=== PATIENT | male | born 1975 | race American Indian/Alaskan Native ===

== ENCOUNTER 2017-09-22 06:56 | Observation (INO) | payer SELFPAY ==
[2017-09-22 07:00] VITALS: BMI 38.4
--- NOTE | 2017-09-22 07:55 | ED PDOC ---
Arrival/HPI - General Historian: Patient - History of Present Illness Time/Duration: Prior to Arrival, 1-3 hours Symptom Onset: Sudden Symptom Course: Unchanged Severity Level: 7 Activities at Onset: Rest Context: Sitting - General Chief Complaint: Chest Pain Time Seen by Provider: 09/22/17 07:28 - History of Present Illness Narrative History of Present Illness (Text): 09/22/17 07:46 42M no significant PMHx, takes no medication [place] [facility] w/ squeezing right sided chest pain that started two hours prior to arrival. Pain is more tolerable when right arm is extended overhead. Describes pain as the same when it first started. No previous episodes like this before. Admits eating chicken wings the night before. No recent sick contacts, or eating anything out of the ordinary. Some associated diaphoresis. Denies headaches, shortness of breath, nausea, vomiting, sudden changes in vision, loss of consciousness. PMD: Dr. Eugene PMH: no current issues. Does not take any meds at home. 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 SocialHx: 1-2 Cigars 1x/week. Denies ETOH, recreational drug use (Krzysztof Jones ) Past Medical History - Provider Review Nursing Documentation Reviewed: Yes - Travel History Have you recently traveled outside [place] w/in the past 3 mons?: No - Past History Past History: Non-Contributing - Infectious Disease Hx of Infectious Diseases: None - Tetanus Immunization Tetanus Immunization: Unknown - Past Medical History Past Medical History: No Previous - Cardiac Other/Comment: Hole in the heart, hernia when he was born, hole in heart closed on it's own. - Pulmonary Hx Respiratory Disorders: No - Neurological Hx Neurological Disorder: No - HEENT Hx HEENT Disorder: No - Renal Hx Renal Disorder: No - Endocrine/Metabolic Hx Endocrine Disorders: No - Hematological/Oncological Hx Blood Disorders: No - Integumentary Hx Dermatological Disorder: No - Musculoskeletal/Rheumatological Hx Falls: No - Gastrointestinal Hx Gastrointestinal Disorders: Yes (twisted intestine as a youth) - Genitourinary/Gynecological Hx Genitourinary Disorders: No - Psychiatric Hx Psychophysiologic Disorder: No Hx Anxiety: No Hx Bipolar Disorder: No Hx Depression: No Hx Emotional Abuse: No Hx Hallucinations: No Hx Panic Disorder: No Hx Post Traumatic Stress Disorder: No Hx Psychosis: No Hx Physical Abuse: No Hx Schizophrenia: No Hx Sexual Abuse: No Hx Substance Use: No - Surgical History Other/Comment: twisted intestine in youth - Anesthesia Hx Anesthesia: Yes Hx Anesthesia Reactions: No Hx Malignant Hyperthermia: No Family/Social History - Physician Review Nursing Documentation Reviewed: Yes Family/Social History: Unknown Family HX (pt was adopted) Smoking Status: Never Smoked Hx Alcohol Use: Yes (social) Hx Substance Use: No Hx Substance Use Treatment: Yes Allergies/Home Meds Allergies/Adverse Reactions: Allergies shellfish derived Allergy (Verified 08/24/15 20:31) SHORTNESS OF BREATH Home Medications: Home Meds Medication Instructions Recorded Confirmed No Known Home Med 08/21/15 09/22/17 Review of Systems - Review of Systems Constitutional: Night Sweats. absent: Fatigue, Weight Change, Fevers Eyes: absent: Vision Changes, Photophobia ENT: absent: Hearing Changes, Tinnitus Respiratory: absent: SOB, Cough, Sputum, Wheezing Cardiovascular: Chest Pain. absent: Palpitations, Edema, Calf Pain Gastrointestinal: absent: Abdominal Pain, Stool Changes, Constipation, Diarrhea , Nausea, Vomiting, Appetite Changes Genitourinary Male: absent: Dysuria, Urinary Output Changes Musculoskeletal: absent: Arthralgias, Back Pain Skin: absent: Rash, Pruritis, Skin Lesions, Laceration Neurological: absent: Headache, Dizziness, Focal Weakness Endocrine: Diaphoresis Physical Exam Vital Signs Reviewed: Yes Temperature: Afebrile Blood Pressure: Hypertensive (BP was rechecked 155/78) Pulse: Regular Respiratory Rate: Normal Appearance: Positive for: Well-Appearing, Non-Toxic, Uncomfortable Pain Distress: None Mental Status: Positive for: Alert and Oriented X 3 - Systems Exam Head: Present: Atraumatic, Normocephalic Pupils: Present: PERRL Extroacular Muscles: Present: EOMI Conjunctiva: Present: Normal Mouth: Present: Moist Mucous Membranes Nose (External): Present: Atraumatic Neck: Present: Normal Range of Motion Respiratory/Chest: Present: Clear to Auscultation, Good Air Exchange. No: Respiratory Distress, Accessory Muscle Use Cardiovascular: Present: Regular Rate and Rhythm, Normal S1, S2 Abdomen: Present: Distention (states abd is normal size). No: Tenderness, Peritoneal Signs, Rebound, Guarding Upper Extremity: Present: Normal Inspection, Normal ROM. No: Edema Lower Extremity: No: Edema, CALF TENDERNESS Neurological: Present: GCS=15, Speech Normal Skin: Present: Warm. No: Rashes Psychiatric: Present: Alert, Oriented x 3 Vital Signs Temp Pulse Resp BP Pulse Ox 09/22/17 09:25 61 18 159/97 H 99 09/22/17 08:10 62 18 131/60 98 09/22/17 07:08 98.2 F 61 18 153/111 H 97 Medical Decision Making - Lab Interpretations Interpretation: All labs normal - EKG Interpretation Interpreted by ED Physician: Yes Type: 12 lead EKG Comparison: No previous EKG avail. ED Course and Treatment: 09/22/17 08:00 Chest pain R/O ACS CBC/CMP/Trops/Lipase CXR/EKG Pepcid/Toradol EKG shows sinus bradycardia. No abnormalities in NH interval or QT/QTc. No signs of acute TN or heart blocks 09/22/17 08:39 No abnormalities on labs. CBC- WNL. TroponinI is negative. Lipase WNL CXR- no signs of acute changes or abnormalities. Discussed case in detail with Dr. Eugene. Will admit for obs to r/o ACS and further work-up for chest pain. (Krzysztof Jones) Patient Seen With Resident: In agreement with resident note which contains more details about the patient. Patient was seen and evaluated with resident. Came up with plan and treatment together. 09/22/17 08:48 Dr. [facility], agrees with admission to observation, with [employer] Dr. Barrios, on consult. 09/22/17 09:55 Ultrasound Abdomen Creator : Kvng Montanez MD FINDINGS: LIVER: Measures 17.0 cm. Hepatopedal blood flow. Fatty infiltration manifest ultrasonographically as increased echogenicity of the liver parenchyma. No mass. No intrahepatic bile duct dilatation. GALLBLADDER: Cholelithiasis without CT evidence of acute cholecystitis. COMMON BILE DUCT: Measures 5.3 mm. No stones. No dilatation. PANCREAS: Unremarkable as visualized. No mass. No ductal dilatation. RIGHT KIDNEY: Measures 5.6 x 12.0cm. Normal echogenicity. No calculus, mass, or hydronephrosis. LEFT KIDNEY: Measures 5.5 x 12.2cm. Normal echogenicity. No calculus, mass, or hydronephrosis. SPLEEN: Normal in size and contour. No mass. AORTA: No aneurysmal dilatation. IVC: Unremarkable. IMPRESSION: Cholelithiasis. No sonographic evidence of acute cholecystitis. ( Akil Jackson) - Lab Interpretations Narrative Lab Interpretation (Text): 09/22/17 08:37 WBC- WNL: no signs of active infection Trop-I < 0.01 (clinically negative) Lipase- 82 (WNL) (Krzysztof Jones) Lab Results: 09/22/17 08:00 09/22/17 08:00 Lab Results 09/22/17 08:00: Sodium 143, Potassium 3.6, Chloride 106, Carbon Dioxide 27, Anion Gap 13, BUN 16, Creatinine 0.8, Est GFR ( Amer) > 60, Est GFR (Non- Af Amer) > 60, Random Glucose 109, Calcium 10.2, Total Bilirubin 0.3, AST 24, ALT 22, Alkaline Phosphatase 37 L, Troponin I < 0.01, Total Protein 7.7, Albumin 4.2, Globulin 3.5, Albumin/Globulin Ratio 1.2, Lipase 82 09/22/17 08:00: WBC 10.3 D, RBC 4.47, Hgb 13.2 L, Hct 40.5 L, MCV 90.6, MCH 29.5, MCHC 32.6, RDW 12.3, Plt Count 308, MPV 10.0, Gran % 77.4 H, Lymph % (Auto ) 16.4 L, Bonner % (Auto) 4.9, Eos % (Auto) 0.9 L, Baso % (Auto) 0.4, Gran # 8.00 H, Lymph # (Auto) 1.7, Bonner # (Auto) 0.5, Eos # (Auto) 0.1, Baso # (Auto) 0.04 - RAD Interpretation Radiology Orders: 09/22/17 07:44 CHEST TWO VIEWS (PA/LAT) [RAD] Stat - EKG Interpretation EKG Interpretation (Text): 09/22/17 08:01 EKG shows sinus bradycardia. No abnormalities in NH interval or QT/QTc. No signs of acute TN or heart blocks (Krzysztof Jones) - Medication Orders Current Medication Orders: Famotidine (Pepcid 20mg/50ml Premix) 20 mg in 50 mls @ 100 mls/hr IVPB Q12 LLOYD Ketorolac Tromethamine (Toradol) 30 mg IVP Q8H PRN PRN Reason: Pain, moderate (4-7) Discontinued Medications Amlodipine Besylate (Norvasc) 5 mg PO STAT STA Stop: 09/22/17 09:00 Last Admin: 09/22/17 09:27 Dose: 5 mg Aspirin (Aspirin Chewable) 324 mg PO STAT STA Stop: 09/22/17 09:01 Last Admin: 09/22/17 09:26 Dose: 324 mg Famotidine (Pepcid) 20 mg IVP STAT STA Stop: 09/22/17 07:45 Last Admin: 09/22/17 07:50 Dose: 20 mg IVP Administration Document 09/22/17 07:50 PARUL (Rec: 09/22/17 07:50 PARUL CORONEL-PC) Charges for Administration # of IVP Administrations 1 Ketorolac Tromethamine (Toradol) 30 mg IVP STAT STA Stop: 09/22/17 07:45 Last Admin: 09/22/17 07:50 Dose: 30 mg MAR Pain Assessment Document 09/22/17 07:50 PARUL (Rec: 09/22/17 07:51 PARUL CORONEL-PC) Pain Reassessment Is this a pain reassessment? No Sleep Is patient sleeping during reassessment? No Presence of Pain Presence of Pain Yes IVP Administration Document 09/22/17 07:50 PARUL (Rec: 09/22/17 07:51 PARUL CORONEL-PC) Charges for Administration # of IVP Administrations 1 - PA / AQUATICS MANAGER / Resident Statement / has reviewed & agrees with the documentation as recorded. / has examined the patient and agrees with the treatment plan. Disposition/Present on Arrival - Present on Arrival Any Indicators Present on Arrival: No History of DVT/PE: No History of Uncontrolled Diabetes: No Urinary Catheter: No History of Decub. Ulcer: No History Surgical Site Infection Following: None - Disposition Have Diagnosis and Disposition been Completed?: Yes Disposition Time: 09:00 Patient Plan: Admission - Disposition Diagnosis: Chest pain, rule out acute myocardial infarction Disposition: HOSPITALIZED Patient Problems: Current Active Problems Problem Status Onset Chest pain, rule out acute myocardial infarction Acute Condition: STABLE
[2017-09-22 08:09] LABS: BASO # 0.04 K/mm3 (0.0-2.0); BASO % 0.4 % (0.0-3.0); EOS # 0.1 (0.0-0.7); EOS % 0.9 % (1.5-5.0); GRAN % 77.4 % (50.0-68.0); HEMOGLOBIN 13.2 g/dL (14.0-18.0); LYMPH # 1.7 (1.2-3.4); LYMPH % 16.4 % (22.0-35.0); MEAN CELL VOLUME 90.6 fl (80.0-105.0); MEAN CORPUSCULAR HEMOGLOBIN 29.5 pg (25.0-35.0); MEAN CORPUSCULAR HGB CONC 32.6 g/dl (31.0-37.0); MONO # 0.5 (0.1-0.6); MONO % 4.9 % (1.0-6.0); RBC 4.47 10^6/uL (3.5-6.1); RED CELL DISTRIBUTION WIDTH 12.3 % (11.5-14.5); WHITE BLOOD COUNT 10.3 10^3/ul (4.5-11.0)
[2017-09-22 08:20] LABS: ALB/GLOB RATIO 1.2 (1.1-1.8); ALBUMIN 4.2 g/dL (3.0-4.8); ALT/SGPT 22 U/L (7-56); AST/SGOT 24 U/L (17-59); BLOOD UREA NITROGEN 16 mg/dL (7-21); CALCIUM 10.2 mg/dL (8.4-10.5); GFR AFRICAN-AMERICAN > 60; GFR NON-AFRICAN AMERICAN > 60; LIPASE 82 U/L (23-300)
[2017-09-22 08:31] LABS: TROPONIN I < 0.01 ng/mL
--- NOTE | 2017-09-22 09:54 | US ---
HISTORY: Mid abdominal pain, right chest pain COMPARISON: 06/09/2016 CT abdomen and pelvis. 12/16/2012 abdominal ultrasound. TECHNIQUE: Sonographic evaluation of the abdomen. FINDINGS: LIVER: Measures 17.0 cm. Hepatopedal blood flow. Fatty infiltration manifest ultrasonographically as increased echogenicity of the liver parenchyma. No mass. No intrahepatic bile duct dilatation. GALLBLADDER: Cholelithiasis without CT evidence of acute cholecystitis. COMMON BILE DUCT: Measures 5.3 mm. No stones. No dilatation. PANCREAS: Unremarkable as visualized. No mass. No ductal dilatation. RIGHT KIDNEY: Measures 5.6 x 12.0cm. Normal echogenicity. No calculus, mass, or hydronephrosis. LEFT KIDNEY: Measures 5.5 x 12.2cm. Normal echogenicity. No calculus, mass, or hydronephrosis. SPLEEN: Normal in size and contour. No mass. AORTA: No aneurysmal dilatation. IVC: Unremarkable. OTHER FINDINGS: None. IMPRESSION: Cholelithiasis. No sonographic evidence of acute cholecystitis.
[2017-09-22] MEDS: Famotidine 20mg/50ml 20 MG/50 ML BAG IVPB SCH ×2 (10:00→21:39)
--- NOTE | 2017-09-22 10:32 | RAD ---
HISTORY: Chest pain. COMPARISON: 08/21/2015 TECHNIQUE: Chest PA and lateral FINDINGS: LUNGS: No active pulmonary disease. PLEURA: No significant pleural effusion identified. No pneumothorax apparent. CARDIOVASCULAR: No radiographic findings to suggest acute or significant cardiovascular disease. OSSEOUS STRUCTURES: No significant abnormalities. VISUALIZED UPPER ABDOMEN: Normal. OTHER FINDINGS: None. IMPRESSION: No active disease.
[2017-09-22 10:41] VITALS: O2SAT 98
--- NOTE | 2017-09-22 12:41 | RAD ---
PROCEDURE: Radiographs of the Right Shoulder HISTORY: rt shoulder pain COMPARISON: No prior. FINDINGS: BONES: Normal. No fracture. JOINTS: Normal. Glenohumeral and acromioclavicular joints preserved. No osteoarthritis. SOFT TISSUES: Normal. OTHER FINDINGS: None. IMPRESSION: Normal radiographs of the right shoulder.
[2017-09-22] MEDS ORDERED: Influenza Vaccine 60 mcg/0.5 mL SYR (4YR UP) IM ONE (13:37)
--- NOTE | 2017-09-22 14:00 | CARD ---
APPROVED REPORT EKG Measurement Heart [id number] CO [id number] <Conclusion> Sinus bradycardia Otherwise normal ECG
--- NOTE | 2017-09-22 19:44 | HP ---
HISTORY OF PRESENT ILLNESS: I know Casper from the office. He came to the emergency room with a sudden onset of chest pain. I was called down to the ER to put him in observation by the emergency room doctor. He is a 42-year-old man, who presents with squeezing right-sided chest pain 2 hours prior to arrival, went to the right arm. This is the first time it has ever happened to him. He was eating chicken wings the night before. No recent sick contacts . No nausea or vomiting, but it is the first time he is having chest pain. PAST MEDICAL HISTORY: Premature , inguinal hernia, twisting of intestines, a hole in the heart at . PAST SURGICAL HISTORY: Subtotal colectomy, inguinal hernia repair at an infant. 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 It healed up on its own. No surgery for that. He had twisted intestine as a youth. SOCIAL HISTORY: He smokes 1-2 cigars per week. No recreational drug use. Never smoked except for cigars. Social alcohol. FAMILY HISTORY: Unknown family history. He was adopted. ALLERGIES: SHELLFISH, HE GETS SHORT OF BREATH. MEDICATIONS: He has no known medications at home. REVIEW OF SYSTEMS: He had sweats, he had right-sided chest pain. No acute vision or hearing changes. No sore throat or cough. No palpitations or edema. There is some abdominal discomfort with some nauseousness and maybe some reflux. No problems urinating. No back pain or arthralgias. No rashes or ulcers or lesions. No headache or dizziness. He was sweating with right-sided chest tightness like a squeezing. His blood pressure is very high here. He is well appearing, nontoxic at this time after medication. PHYSICAL EXAMINATION: GENERAL: He is alert and oriented x3. HEENT: Head is atraumatic, normocephalic. Extraocular muscles are intact. Pupils are equal and reactive to light. Throat is moist. NECK: Supple. HEART: Regular rate. Normal S1, S2. LUNGS: Decreased breath sounds bilaterally, but clear to auscultation. ABDOMEN: Obese and mildly distended. No guarding. No rebound. EXTREMITIES: No edema. NEUROLOGIC: GCS is 15. Cranial nerves II through XII grossly intact. SKIN: Warm and dry. No rashes. VITAL SIGNS: He has a 98.2 temperature, 61 pulse, 18 respiratory rate, 153/111 blood pressure, 97% O2 sat on room air. I am going to put him on blood pressure pills and Cardiology consult and oxygen. LABORATORY DATA: On lab test, his EKG showed sinus bradycardia, no abnormalities. He had a blood test. He has a 143 sodium, potassium 3.6, BUN 16, creatinine 0.8. GFR is greater than 60. Sugar is 109. Calcium is 10.2. Total bili is 0.3, AST is 24, ALT is 32, alkaline phosphatase 37. Troponin I is less than 0.01. Total protein 7.2. Albumin is 4.2. Lipase is 82. White count is 10.3, hemoglobin 13.2, hematocrit 40.5, and platelets of 308. Chest x-ray is pending. He will be in the hospital for observation. Cardiology Consult. Pepcid IV q. 12. He will get some Toradol p.r.n. for pain. I will put him on some Norvasc for blood pressure pills and on oxygen, also if he does well overnight with the troponins. We will check an ultrasound of the abdomen and will see how he does. Casper Farias is in observation for chest pain. Kvng Eugene DO MTDD
--- NOTE | 2017-09-22 22:54 | CON ---
DATE: 09/22/2017 HISTORY OF PRESENT ILLNESS: The patient is a 42-year-old male who presents with right shoulder and right chest pain. His symptoms are associated with movement of his right arm. The patient is free of cardiac history. As a child, he had a "hole in the heart," which closed spontaneously. No hypertension, no diabetes mellitus. No previous cardiac history in the past. The patient had recent admissions for abdominal symptoms. He denies hypertension, denies diabetes mellitus. SOCIAL HISTORY: The patient does not smoke. He does smoke occasional cigars. REVIEW OF SYSTEMS: A 14-point review of systems was reviewed in detail. No cardiac symptomatology is noted. PHYSICAL EXAMINATION: VITAL SIGNS: Blood pressure is 141/79, heart rates in the 50s, normal sinus rhythm. NECK: Negative JVD. LUNGS: Without rales. HEART: With S1, S2. EXTREMITIES: Without edema. LABORATORY DATA: Includes an EKG which is unremarkable. Hemoglobin is 13.2. Troponin is negative x1. IMPRESSION: 1. Right-sided chest pain. 2. No evidence for acute coronary syndrome. 3. History of abdominal symptoms. 4. Right shoulder pain. PLAN: Given these findings, we will obtain an x-ray of his right shoulder. There is no evidence for acute coronary syndrome. Choco Barrios MD
[2017-09-23 07:16] LABS: HEMOGLOBIN 13.1 g/dL (14.0-18.0); MEAN CELL VOLUME 89.9 fl (80.0-105.0); MEAN CORPUSCULAR HGB CONC 33.4 g/dl (31.0-37.0); MEAN PLATELET VOLUME 10.4 fl (7.0-11.0); RBC 4.36 10^6/uL (3.5-6.1); RED CELL DISTRIBUTION WIDTH 12.2 % (11.5-14.5); WHITE BLOOD COUNT 7.6 10^3/ul (4.5-11.0)
[2017-09-23 07:45] LABS: ALB/GLOB RATIO 1.1 (1.1-1.8); ALBUMIN 3.7 g/dL (3.0-4.8); ALT/SGPT 31 U/L (7-56); AST/SGOT 25 U/L (17-59); BLOOD UREA NITROGEN 8 mg/dL (7-21); CALCIUM 9.5 mg/dL (8.4-10.5); GFR AFRICAN-AMERICAN > 60; GFR NON-AFRICAN AMERICAN > 60
[2017-09-23] MEDS ORDERED: Potassium Chloride 20 mEq ER Tab PO ONE (08:29)
[2017-09-23] MEDS: Famotidine 20mg/50ml 20 MG/50 ML BAG IVPB SCH (09:12)
[2017-09-23 09:13] VITALS: BP 125/69
--- NOTE | 2017-09-23 09:58 | PN ---
DATE: CARDIOLOGY FOLLOWUP SUBJECTIVE: The patient is chest pain free. PHYSICAL EXAMINATION VITAL SIGNS: Blood pressure is 125/69, heart rate is in the 60s. NECK: Negative JVD. LUNGS: Without rales. HEART: S1, S2. EXTREMITIES: Without edema. LABORATORY DATA: Troponins are negative x2. Hemoglobin is 13.1. X-ray of the right shoulder is negative. IMPRESSION 1. No evidence for acute coronary syndrome. 2. No evidence for angina. Given the patient's risk factors, we will arrange for an outpatient stress test. No further cardiac workup is necessary at this time. Choco Barrios MD
[2017-09-23 10:12] VITALS: PULSE 58; RESP 18; TEMP 98.7
--- NOTE | 2017-09-23 10:21 | DS ---
HISTORY OF PRESENT ILLNESS: I saw Mr. Fraias resting comfortably in bed. He slept well. He wants to go home. His right-sided abdominal pain and chest pain are now dissipated. He was getting aspirin, Norvasc, Pepcid, famotidine, pseudoephedrine and Toradol. PHYSICAL EXAMINATION: VITAL SIGNS: His vital signs today are 98.2 temp, 55 pulse, 141/79 blood pressure, 17 respiratory rate, 98% O2 sat on room air. HEENT: His head is atraumatic, normocephalic. Throat is moist. NECK: Supple. HEART: Regular rate. LUNGS: Clear to auscultation with decreased breath sounds. ABDOMEN: Soft, obese, nontender. No guarding, no rebound, no CVA tenderness. No more chest pain, abdominal pain. EXTREMITIES: Have no edema. LABORATORY DATA: He has a 142 sodium; potassium of 3.4, I am going to give him a potassium pill today; BUN 8; creatinine 0.8; GFR is greater than 60; sugar is 87; calcium is 9.5; total bili is 0.5; AST is 25; ALT is 31; alk phos is 28. All the troponins were less than 0.01 and albumin is 7. White count is 7.6, hemoglobin 13.1, hematocrit 39.2, platelets of 287. ASSESSMENT AND PLAN: He is going to need to be on Norvasc 5 mg, Pepcid [id number] and a low-fat diet. I am going to recheck him in a weak and hopefully he will do very well. Kvng Eugene DO
== END 2017-09-23 13:18 | disposition home or self-care (01) ==
LOC: ED 06:56 → ERH 08:50 → 3RSO 11:15
PROVIDERS: ADMIT Family Medicine; ATTEND Family Medicine
DX: R07.89 Other chest pain (principal); M25.511 Pain in right shoulder
CPT/HCPCS: 36415; 71046; 73030; 76700; 80053; 83690; 84484; 85025; 85027; 93005; 96374; 99285; G0378; J1885

== ENCOUNTER 2018-07-06 22:23 | Inpatient (IN) | payer OTHER ==
[2018-07-06] MEDS ORDERED: Atrop/Hyosc/Scopal/PB Elixir (120 ml) PO STA (23:24)
[2018-07-06] MEDS ORDERED: Alum-Mag Hydrox-Simethicone Susp (30 mL) PO STA (23:24)
[2018-07-06] MEDS ORDERED: Famotidine 20mg/50ml 20 MG/50 ML BAG IVPB STA (23:24)
--- NOTE | 2018-07-07 02:57 | ED PDOC ---
Arrival/HPI - General Chief Complaint: Chest Pain Time Seen by Provider: 07/06/18 22:42 Historian: Patient - History of Present Illness Narrative History of Present Illness (Text): 07/07/18 02:59 43 year old male, with history of small bowel obstruction, presents to the emergency department complaining of abdominal pain and vomiting since 18:00 yesterday. Patient complains of associated nausea. Patient states he has these issues intermittently, and is in need of recurrent bowel surgeries. Patient states he did not take any pain medication because he could not stomach anything. Patient denies any fever, chills, headache, dizziness, chest pain, shortness of breath, or any other complaints at this time. Time/Duration: 4-6 hours Symptom Onset: Gradual Symptom Course: Unchanged Context: Home Past Medical History - Provider Review Nursing Documentation Reviewed: Yes - Past History Past History: Non-Contributing - Infectious Disease Hx of Infectious Diseases: None - Tetanus Immunization Tetanus Immunization: Unknown - Past Medical History Past Medical History: No Previous - Cardiac Other/Comment: Hole in the heart, hernia when he was born, hole in heart closed on it's own. - Pulmonary Hx Respiratory Disorders: No - Neurological Hx Neurological Disorder: No - HEENT Hx HEENT Disorder: No - Renal Hx Renal Disorder: No - Endocrine/Metabolic Hx Endocrine Disorders: No - Hematological/Oncological Hx Blood Disorders: No - Integumentary Hx Dermatological Disorder: No - Musculoskeletal/Rheumatological Hx Falls: No - Gastrointestinal Hx Gastrointestinal Disorders: Yes (twisted intestine as a youth) - Genitourinary/Gynecological Hx Genitourinary Disorders: No - Psychiatric Hx Psychophysiologic Disorder: No Hx Anxiety: No Hx Bipolar Disorder: No Hx Depression: No Hx Emotional Abuse: No Hx Hallucinations: No Hx Panic Disorder: No Hx Post Traumatic Stress Disorder: No Hx Psychosis: No Hx Physical Abuse: No Hx Schizophrenia: No Hx Sexual Abuse: No Hx Substance Use: No - Surgical History Other/Comment: twisted intestine in youth - Anesthesia Hx Anesthesia: Yes Hx Anesthesia Reactions: No Hx Malignant Hyperthermia: No Family/Social History - Physician Review Nursing Documentation Reviewed: Yes Family/Social History: No Known Family HX Smoking Status: Cigars Hx Alcohol Use: Yes (social) Hx Substance Use: No Hx Substance Use Treatment: Yes Allergies/Home Meds Allergies/Adverse Reactions: Allergies shellfish derived Allergy (Verified 08/24/15 20:31) SHORTNESS OF BREATH Home Medications: Home Meds Medication Instructions Recorded Confirmed No Known Home Med 08/21/15 09/22/17 Review of Systems - Physician Review All systems were reviewed & negative as marked: Yes - Review of Systems Constitutional: absent: Fevers, Night Sweats Respiratory: absent: SOB Cardiovascular: absent: Chest Pain Gastrointestinal: Abdominal Pain, Vomiting Musculoskeletal: absent: Back Pain Neurological: absent: Headache, Dizziness Physical Exam Vital Signs Reviewed: Yes Vital Signs Temp Pulse Resp BP Pulse Ox 07/06/18 22:24 98.4 F 60 18 163/96 H 96 Temperature: Afebrile Blood Pressure: Hypertensive Pulse: Regular Respiratory Rate: Normal Appearance: Positive for: Well-Appearing, Non-Toxic, Comfortable Pain Distress: None Mental Status: Positive for: Alert and Oriented X 3 - Systems Exam Head: Present: Atraumatic, Normocephalic Pupils: Present: PERRL Extroacular Muscles: Present: EOMI Conjunctiva: Present: Normal Mouth: Present: Moist Mucous Membranes Neck: Present: Normal Range of Motion Respiratory/Chest: Present: Clear to Auscultation, Good Air Exchange. No: Respiratory Distress, Accessory Muscle Use Cardiovascular: Present: Regular Rate and Rhythm, Normal S1, S2. No: Murmurs Abdomen: Present: Tenderness (Diffusely tender). No: Distention, Peritoneal Signs Back: Present: Normal Inspection Upper Extremity: Present: Normal Inspection. No: Cyanosis, Edema Lower Extremity: Present: Normal Inspection. No: Edema Neurological: Present: GCS=15, CN II-XII Intact, Speech Normal Skin: Present: Warm, Dry, Normal Color. No: Rashes Psychiatric: Present: Alert, Oriented x 3, Normal Insight, Normal Concentration Medical Decision Making ED Course and Treatment: Impression 43M w/ h/o SBO presenting with abdominal pain Differential Diagnoses Includes But Is Not Limited To: --SBO --Pancreatitis --Colitis Plan --Labs --Zosyn --CT a/p --Toradol --NSS --Surgery Consult --Reassess & disposition Progress Notes 07/07/18 02:57 Leukocytosis of 13 noted with shift. Pending CT a/p 07/07/18 03:25 CT imaging reveals SBO with transition point. Spoke to Surgery resident who will come down and see patient. Discussed patient results and CT imaging with Dr. Eugene(PCP) who requests Dr. Issa(general surgery) & Dr. Robertson(infectious disease) for consult. - Lab Interpretations Lab Results: 07/06/18 23:40 Lab Results 07/06/18 23:40: Sodium 139, Potassium 4.2, Chloride 98, Carbon Dioxide 32, Anion Gap 13, BUN 11, Creatinine 0.9, Est GFR ( Amer) > 60, Est GFR (Non-Af Amer) > 60, Random Glucose 104, Calcium 10.1, Magnesium 1.9, Total Bilirubin 0.6, AST 41, ALT 29, Alkaline Phosphatase 51, Troponin I < 0.01, NT-Pro-B Natriuret Pep 13.2, Total Protein 8.9 H, Albumin 4.9 H, Globulin 4.0, Albumin/Globulin Ratio 1.2, Lipase 39 I have reviewed the lab results: Yes - RAD Interpretation Radiology Orders: 07/06/18 23:36 ABD & PELVIS W/O PO OR IV CONT [CT] Stat CT Abdomen and Pelvis Without IV contrast IMPRESSION: 1. Dilated loops of mid abdominal small bowel with transition point distally compatible with small bowel obstruction. This can be confirmed with CT performed with oral/IV contrast. 2. 4 cm left renal cyst is seen. - Medication Orders Current Medication Orders: Discontinued Medications Al Hydrox/Mg Hydrox/Simethicone (Maalox Plus 30 Ml) 30 ml PO STAT STA Stop: 07/06/18 23:25 Belladonna/Phenobarbital ( Elixir) 5 ml PO STAT STA Stop: 07/06/18 23:25 Famotidine (Pepcid 20mg/50ml Premix) 20 mg in 50 mls @ 100 mls/hr IVPB STAT STA Stop: 07/06/18 23:53 Ondansetron HCl (Zofran Inj) 4 mg IVP STAT STA Stop: 07/06/18 23:25 - Scribe Statement The provider has reviewed the documentation as recorded by the Scribe Choco Viveros Provider Scribe Attestation: All medical record entries made by the Scribe were at my direction and personally dictated by me. I have reviewed the chart and agree that the record accurately reflects my personal performance of the history, physical exam, medical decision making, and the department course for this patient. I have also personally directed, reviewed, and agree with the discharge instructions and disposition. a Disposition/Present on Arrival - Present on Arrival Any Indicators Present on Arrival: No History of DVT/PE: No History of Uncontrolled Diabetes: No Urinary Catheter: No History of Decub. Ulcer: No History Surgical Site Infection Following: None - Disposition Have Diagnosis and Disposition been Completed?: Yes Diagnosis: SBO (small bowel obstruction) Disposition: HOME/ ROUTINE Disposition Time: 03:31 Patient Plan: Admission Condition: GUARDED Forms: [employer] (Guatemalan)
[2018-07-07 03:04] LABS: BLOOD UREA NITROGEN 11 mg/dL (7-21); CALCIUM 10.1 mg/dL (8.4-10.5); GFR NON-AFRICAN AMERICAN > 60
[2018-07-07 03:07] LABS: ALB/GLOB RATIO 1.2 (1.1-1.8); ALBUMIN 4.9 g/dL (3.0-4.8); ALT/SGPT 29 U/L (7-56); AST/SGOT 41 U/L (17-59); B-TYPE NATRIURETIC PEPTIDE 13.2 pg/mL (0-450); LIPASE 39 U/L (23-300)
[2018-07-07 03:08] LABS: TROPONIN I < 0.01 ng/mL
[2018-07-07] MEDS ORDERED: Piperacill/Tazo 4.5gm in NS 4.5 GM/100 ML BAG IVPB STA (03:23)
--- NOTE | 2018-07-07 03:56 | CP.PCM.CON ---
History of Present Illness - History of Present Illness History of Present Illness: Surgery: Dr. Issa CC: Abd pain HPI: 43M w. 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 The pain is diffuse, constant, and described as sharp. The pain is similar to the pain he has had in the past with his SBOs. Pain was accompanied by 1 episode of nausea and vomiting. Pt states that he has not passed flatus or had BM since last night. CT done in ED was consistent w. SBO. Pt's SBOs in the past resolved w. conservative management, NPO/NGT. Pt is currently refusing NGT and states that he would like to hold off unless the pain becomes worse. PMH: "twisted intestines" as child PSH: abdominal surgery as child for "twisted intestines" Meds: MAR reviewed ALL: shellfish Social: Social ETOH, no tobacco/drugs Fhx: Non-contributory Review of Systems - Review of Systems All systems: reviewed and no additional remarkable complaints except (HPI) Past Patient History - Infectious Disease Hx of Infectious Diseases: None - Tetanus Immunizations Tetanus Immunization: Unknown - Past Social History Smoking Status: Cigars - CARDIAC Other/Comment: Hole in the heart, hernia when he was born, hole in heart closed on it's own. - PULMONARY Hx Respiratory Disorders: No - NEUROLOGICAL Hx Neurological Disorder: No - HEENT Hx HEENT Problems: No - RENAL Hx Chronic Kidney Disease: No - ENDOCRINE/METABOLIC Hx Endocrine Disorders: No - HEMATOLOGICAL/ONCOLOGICAL Hx Blood Disorders: No - INTEGUMENTARY Hx Dermatological Problems: No - MUSCULOSKELETAL/RHEUMATOLOGICAL Hx Falls: No - GASTROINTESTINAL Hx Gastrointestinal Disorders: Yes (twisted intestine as a youth) - GENITOURINARY/GYNECOLOGICAL Hx Genitourinary Disorders: No - PSYCHIATRIC Hx Psychophysiologic Disorder: No Hx Anxiety: No Hx Bipolar Disorder: No Hx Depression: No Hx Emotional Abuse: No Hx Hallucinations: No Hx Panic Symptoms: No Hx Post Traumatic Stress Disorder: No Hx Psychosis: No Hx Physical Abuse: No Hx Schizophrenia: No Hx Sexual Abuse: No Hx Substance Use: No - SURGICAL HISTORY Other/Comment: twisted intestine in youth - ANESTHESIA Hx Anesthesia: Yes Hx Anesthesia Reactions: No Hx Malignant Hyperthermia: No Meds Allergies/Adverse Reactions: Allergies Allergy/AdvReac Type Severity Reaction Status Date / Time shellfish derived Allergy SHORTNESS Verified 08/24/15 20:31 OF BREATH Physical Exam - Constitutional Appears: Non-toxic, No Acute Distress - Head Exam Head Exam: ATRAUMATIC, NORMOCEPHALIC - Eye Exam Eye Exam: EOMI - ENT Exam ENT Exam: Mucous Membranes Moist - Neck Exam Neck exam: Positive for: Full Rom - Respiratory Exam Respiratory Exam: NORMAL BREATHING PATTERN. absent: Accessory Muscle Use, Respiratory Distress - GI/Abdominal Exam GI & Abdominal Exam: Soft, Tenderness. absent: Distended, Firm, Guarding, Rebound, Rigid - Extremities Exam Extremities exam: Negative for: calf tenderness, pedal edema - Neurological Exam Neurological exam: Alert, Oriented x3 - Psychiatric Exam Psychiatric exam: Normal Affect, Normal Mood Results - Vital Signs Recent Vital Signs: Last Vital Signs Temp 98.4 F 07/06/18 22:24 Pulse 60 07/06/18 22:24 Resp 18 07/06/18 22:24 BP 163/96 H 07/06/18 22:24 Pulse Ox 96 07/06/18 22:24 - Labs Result Diagrams: 07/06/18 23:40 Labs: Laboratory Results - last 24 hr 07/06/18 23:40 Sodium 139 Potassium 4.2 Chloride 98 Carbon Dioxide 32 Anion Gap 13 BUN 11 Creatinine 0.9 Est GFR ( Amer) > 60 Est GFR (Non-Af Amer) > 60 Random Glucose 104 Calcium 10.1 Magnesium 1.9 Total Bilirubin 0.6 AST 41 ALT 29 Alkaline Phosphatase 51 Troponin I < 0.01 NT-Pro-B Natriuret Pep 13.2 Total Protein 8.9 H Albumin 4.9 H Globulin 4.0 Albumin/Globulin Ratio 1.2 Lipase 39 - Imaging and Cardiology CT scan - abdomen Status: Image reviewed by me, Report reviewed by me Assessment & Plan - Assessment and Plan (Free Text) Assessment: 43M w. SBO -NPO -IVF -serial abd exams -Recommend NGT, pt is currently refusing, but states that he will let tube be placed if symptoms worsen -will d/w attending Jordynitis PGY4
[2018-07-07 04:17] LABS: HEMOGLOBIN 14.1 g/dL (14.0-18.0); MEAN CELL VOLUME 91.2 fl (80.0-105.0); RBC 4.64 10^6/uL (3.5-6.1); WHITE BLOOD COUNT 13.9 10^3/uL (4.5-11.0)
[2018-07-07 04:18] LABS: BASO # 0.04 K/mm3 (0.0-2.0); BASO % 0.3 % (0.0-3.0); EOS # 0.1 (0.0-0.7); EOS % 0.4 % (1.5-5.0); GRAN # 12.04 (1.4-6.5); GRAN % 86.6 % (50.0-68.0); LYMPH % 7.4 % (22.0-35.0); MEAN CORPUSCULAR HEMOGLOBIN 30.4 pg (25.0-35.0); MEAN CORPUSCULAR HGB CONC 33.3 g/dl (31.0-37.0); MEAN PLATELET VOLUME 9.9 fl (7.0-11.0); MONO # 0.7 (0.1-0.6); MONO % 5.3 % (1.0-6.0); RED CELL DISTRIBUTION WIDTH 12.2 % (11.5-14.5)
[2018-07-07] MEDS: Sodium Chloride 0.9% 1,000 ML IV SCH ×2 (05:00→14:58)
--- NOTE | 2018-07-07 08:56 | RAD ---
Date of service: 07/07/2018 HISTORY: s/p ngt COMPARISON: 09/22/2017. FINDINGS: LUNGS: The lungs are well inflated and clear. PLEURA: No pleural effusions or pneumothorax. CARDIOVASCULAR: There is mild cardiomegaly. No aortic atherosclerotic calcification present. OSSEOUS STRUCTURES: Within normal limits for the patient's age. There is an S-shaped scoliosis in the thoracolumbar spine. VISUALIZED UPPER ABDOMEN: Normal. OTHER FINDINGS: The nasogastric tube terminates in the stomach. IMPRESSION: No active pulmonary disease.
--- NOTE | 2018-07-07 09:15 | CARD ---
APPROVED REPORT Date of service: 07/06/2018 EKG Measurement Heart [id number] <Conclusion> Normal sinus rhythm Left axis deviation
--- NOTE | 2018-07-07 09:56 | CT ---
Date of service: 07/07/2018 PROCEDURE: CT Abdomen and Pelvis without intravenous contrast HISTORY: h/o obstruction w/ abdominal pain COMPARISON: 06/09/2016 TECHNIQUE: Without contrast. Contrast dose: Radiation dose: Total exam DLP = 1404.25 mGy-cm. This CT exam was performed using one or more of the following dose reduction techniques: Automated exposure control, adjustment of the mA and/or kV according to patient size, and/or use of iterative reconstruction technique. FINDINGS: LOWER THORAX: Unremarkable. LIVER: Unremarkable. No gross lesion or ductal dilatation. GALLBLADDER AND BILE DUCTS: Unremarkable. PANCREAS: Unremarkable. No gross lesion or ductal dilatation. SPLEEN: Unremarkable. ADRENALS: Unremarkable. No mass. KIDNEYS AND URETERS: Unremarkable. No hydronephrosis. No solid mass. VASCULATURE: Unremarkable. No aortic aneurysm. No aortic atherosclerotic calcification or mural plaque present. BOWEL: Dilated fluid-filled loops of small bowel are seen in the proximal and mid abdomen consistent with partial small bowel obstruction. The pattern is similar to the previous study from 2016. APPENDIX: Unremarkable. Normal appendix. PERITONEUM: Unremarkable. No free fluid. No free air. LYMPH NODES: Unremarkable. No enlarged lymph nodes. BLADDER: Unremarkable. REPRODUCTIVE: Unremarkable. BONES: Mild scoliosis convex to the left OTHER FINDINGS: The report concurs with the preliminary [facility] report IMPRESSION: Dilated fluid-filled loops of small bowel are seen in the proximal and mid abdomen consistent with partial small bowel obstruction. The pattern is similar to the previous study from 2016.
--- NOTE | 2018-07-07 12:18 | CON ---
DATE: 07/07/2018 The patient is in bed, in no acute distress and seen in the emergency room. CHIEF COMPLAINT: Abdominal pain x1 day duration. HISTORY OF PRESENT ILLNESS: This is a 43-year-old male with morbid obesity with BMI of 40. With the history of hernia as a child, congenital hernia, had abdominal surgery. Has had multiple episodes of small bowel obstruction and now he is admitted with abdominal pain. Found to have small bowel obstruction, leukocytosis, Infectious Disease consult patient requested. Patient is complaining of nausea and vomiting. No diarrhea. He denies any dysuria or frequency. No cough, shortness of breath or chest pain. REVIEW OF SYSTEMS: Twelve-point review of systems is performed. PAST MEDICAL HISTORY: Significant for small bowel obstruction and congenital hernia. PAST SURGICAL HISTORY: Significant for abdominal surgery. MEDICATIONS: . ALLERGIES: THE PATIENT IS ALLERGIC TO SHELLFISH. PHYSICAL EXAMINATION: VITAL SIGNS: Temperature is 98, blood pressure is 160/90, respiratory rate of 18, blood pressure is noted. HEENT: Unremarkable. NECK: Supple. LUNGS: Have decreased breath sounds. HEART: Normal S1 and S2. ABDOMEN: Mild tenderness. No rebound. No guarding. No masses. LABORATORY EXAMINATION: Reveals a white count of , hemoglobin of 14. Chemistries are reviewed. Patient had a CAT scan of the abdomen and pelvis, which was noted to have dilated small bowel, consistent with a small bowel obstruction. ASSESSMENT AND PLAN: This is a 43-year-old male presenting with: 1. A small bowel obstruction with leukocytosis. We will treat the patient with ceftriaxone and Flagyl. Patient has an NG tube. We will order cultures, urinalysis, urine culture, human immunodeficiency virus, because of his age and we will follow with you. Bala Robertson MD
--- NOTE | 2018-07-07 12:57 | RAD ---
Date of service: 07/07/2018 HISTORY: NG tube COMPARISON: No prior. FINDINGS: LUNGS: No active pulmonary disease. PLEURA: No significant pleural effusion identified, no pneumothorax apparent. CARDIOVASCULAR: No aortic atherosclerotic calcification present. Moderate cardiomegaly no pulmonary vascular congestion. OSSEOUS STRUCTURES: No significant abnormalities. VISUALIZED UPPER ABDOMEN: Nasogastric tube in satisfactory position OTHER FINDINGS: None. IMPRESSION: Nasogastric tube in satisfactory position
[2018-07-07] MEDS ORDERED: Influenza Vaccine 60 mcg/0.5 mL SYR (4YR UP) IM ONE (12:59)
[2018-07-07] MEDS ORDERED: Pneumococcal 23-Valent Vaccine IM ONE (12:59)
[2018-07-07 13:15] VITALS: BMI 39.8
--- NOTE | 2018-07-07 13:54 | HP ---
DATE OF EXAM: 07/07/2018 HISTORY OF PRESENT ILLNESS: I have known Casper for a while. He is coming back into the hospital for abdominal pain, constipation, nausea, and vomiting from about 24 hours before he got to the ER, it is intermittent. He feels like this would happen, the last time he came in he had small bowel obstruction. He had recurrent bowel surgeries in the past. He had a hole in his heart earlier when he was born. Hole in the heart closed on its own. He had twisted intestine as a youth. FAMILY HISTORY: No known family history. SOCIAL HISTORY: He smokes cigars. Social alcohol. No substance abuse. ALLERGIES: HE IS ALLERGIC TO SHELLFISH. MEDICATIONS: Unknown medications he takes. REVIEW OF SYSTEMS: No fevers. No night sweats or shortness of breath or cough. No chest pain. He does have abdominal pain with vomiting, it is severe. No back pain. No headaches or dizziness. PHYSICAL EXAMINATION GENERAL: He is hypertensive. He has discomfort. He is alert and oriented x3. VITAL SIGNS: He has 98.4 temperature, 60 pulse, 18 respiratory rate, 163/96 blood pressure, and 96% O2 saturation on room air. HEENT: His head is atraumatic and normocephalic. Extraocular muscles are intact. Pupils are equal and reactive to light. Throat is moist. NECK: Supple. HEART: Regular rate. Normal S1 and S2. LUNGS: Decreased breath sounds, but clear to auscultation. Poor respiration. ABDOMEN: Distended. Diffusely tender everywhere. No bowel sounds are heard to auscultate. Questionable guarding. No rebound. He is very uncomfortable. Does not really look the last time he was here with small bowel obstruction. EXTREMITIES: No edema. NEUROLOGIC: GCS is 15. Cranial nerves II through XII grossly intact. Normal speech. Alert and oriented x3. SKIN: Warm and dry. No rashes. LYMPHS: Thyroid midline. No palpable appreciable lymphadenopathy. LABORATORY DATA: He had a CAT scan which showed small bowel obstruction. He had blood test done which shows a 13.9 white count, 14.1 hemoglobin, 42.3 hematocrit, and 303 platelets. He has a 139 sodium, potassium 4.2, BUN 11, creatinine 0.9, GFR is greater than 60, sugar is 104, calcium is 10.1, magnesium 1.9, total bili is 0.6, AST is 41, ALT is 29, alk phos 51, troponin I less than 0.01, BMP is 13.2, total protein is 8.9, and lipase is 39. IMPRESSION AND PLAN: He has consult with Surgery, also Infectious Disease. He is already on Zosyn, Zofran, and Toradol. Hopefully, he will improve. He had an nasogastric tube in earlier, it was taken out by himself. He took it out. He also has a 135/76 blood pressure that improved. History of small bowel obstruction, abdominal pain, nausea, and vomiting. Hopefully, he will improve again. Kvng Eugene DO
[2018-07-07] MEDS: cefTRIAXone 1 gm 1 GM/100 ML BAG IVPB SCH (14:33)
[2018-07-07] MEDS: metroNIDAZOLE IV 500 mg/100 ml 500 MG/100 ML BAG IVPB SCH ×2 (14:34→21:43)
[2018-07-08] MEDS: Sodium Chloride 0.9% 1,000 ML IV SCH (01:00)
[2018-07-08] MEDS: metroNIDAZOLE IV 500 mg/100 ml 500 MG/100 ML BAG IVPB SCH ×3 (05:48→21:32)
[2018-07-08 06:32] LABS: HEMOGLOBIN 12.7 g/dL (14.0-18.0); MEAN CELL VOLUME 93.6 fl (80.0-105.0); MEAN CORPUSCULAR HEMOGLOBIN 29.2 pg (25.0-35.0); MEAN CORPUSCULAR HGB CONC 31.2 g/dl (31.0-37.0); MEAN PLATELET VOLUME 10.4 fl (7.0-11.0); RBC 4.35 10^6/uL (3.5-6.1); RED CELL DISTRIBUTION WIDTH 12.2 % (11.5-14.5); WHITE BLOOD COUNT 9.3 10^3/uL (4.5-11.0)
[2018-07-08 07:17] LABS: ALB/GLOB RATIO 1.2 (1.1-1.8); ALT/SGPT 19 U/L (7-56); AST/SGOT 30 U/L (17-59); BLOOD UREA NITROGEN 11 mg/dL (7-21); CALCIUM 9.1 mg/dL (8.4-10.5); GFR NON-AFRICAN AMERICAN > 60
[2018-07-08] MEDS: cefTRIAXone 1 gm 1 GM/100 ML BAG IVPB SCH (09:06)
--- NOTE | 2018-07-08 09:13 | CP.PCM.PN ---
Subjective - Date & Time of Evaluation Date of Evaluation: 07/08/18 Time of Evaluation: 09:10 - Subjective Subjective: Surgery: Dr. Issa Pt seen and examined. no acute events overnight. Pt states that he feels better, however pain persists. No N/V. No Flatus/BM. Objective - Vital Signs/Intake and Output Vital Signs (last 24 hours): Temp Pulse Resp BP Pulse Ox 98.4 F 75 20 146/79 94 L 07/08/18 08:17 07/08/18 08:17 07/08/18 08:17 07/08/18 08:17 07/08/18 08:17 Intake and Output: 07/08/18 07/08/18 06:59 18:59 Intake Total 1700 Output Total 0 Balance 1700 - Medications Medications: Current Medications Sodium Chloride (Sodium Chloride 0.9%) 1,000 mls @ 150 mls/hr IV .Q6H40M [facility] Last Admin: 07/08/18 01:00 Dose: 150 mls/hr Metronidazole (Flagyl) 500 mg in 100 mls @ 100 mls/hr IVPB Q8 [facility]; Protocol Stop: 07/15/18 14:01 Last Admin: 07/08/18 05:48 Dose: 100 mls/hr Ceftriaxone Sodium (Rocephin 1 Gram Ivpb) 1 gm in 100 mls @ 100 mls/hr IVPB DAILY [facility]; Protocol Stop: 07/15/18 10:45 Last Admin: 07/07/18 14:33 Dose: 100 mls/hr Ketorolac Tromethamine (Toradol) 30 mg IVP Q6H PRN PRN Reason: Pain, moderate (4-7) Last Admin: 07/07/18 14:32 Dose: 30 mg Ondansetron HCl (Zofran Inj) 4 mg IVP Q4H PRN PRN Reason: Nausea/Vomiting Last Admin: 07/07/18 05:00 Dose: 4 mg - Labs Labs: 07/08/18 05:44 07/08/18 05:44 - Constitutional Appears: Non-toxic, No Acute Distress - Head Exam Head Exam: ATRAUMATIC, NORMOCEPHALIC - Eye Exam Eye Exam: EOMI - ENT Exam ENT Exam: Mucous Membranes Moist - Neck Exam Neck Exam: Full ROM - Respiratory Exam Respiratory Exam: NORMAL BREATHING PATTERN. absent: Accessory Muscle Use, Respi ratory Distress - GI/Abdominal Exam GI & Abdominal Exam: Soft, Tenderness (epigastric). absent: Distended, Firm, Guarding, Rigid, Rebound - Extremities Exam Extremities Exam: absent: Calf Tenderness, Pedal Edema - Neurological Exam Neurological Exam: Alert, Awake Assessment and Plan - Assessment and Plan (Free Text) Assessment: 43M w. SBO -NGT: 350cc/24hr, keep to sxn -NPO -IVF -Obstructive series scheduled for today, f/u results -encourage ambulation -serial abd exams -d/w attending Greg PGY4
[2018-07-08] MEDS ORDERED: Iohexol 300 100 ML IJ ONE (09:59)
--- NOTE | 2018-07-08 11:14 | PN ---
DATE: 07/08/2018 SUBJECTIVE: The NG tube is out, but now it is back in. He is lying in bed, asking for some food. He has not moved his bowels, his belly is also painful, possibly we will get him some ice chips if it was okay with surgery. He did get out of bed to chair yesterday and walked a little bit, but he is definitely bloated and uncomfortable. PHYSICAL EXAMINATION: VITAL SIGNS: He has 98.4 temperature, 75 pulse, 146/79 blood pressure, 20 respiratory rate, 94% O2 sat on room air. HEENT: Atraumatic, normocephalic. NG tube in place, mild suctioning not much. HEART: Regular rate with decreased breath sounds but clear. ABDOMEN: Distended. No bowel sounds at all, it is diffusely tender everywhere. No guarding or rebound. EXTREMITIES: No edema. LABORATORY DATA: He has a 9.3 white count, it was better when it was high at 13.9; hemoglobin 12.7; hematocrit 40.7, platelets of 307. 143 sodium, potassium 4.1, BUN 11, creatinine 0.9, calcium 9.1, total bili is 0.5. AST is 30, ALT is 19, alk phos is 45. Troponin I is less than 0.01, total protein 7.3. MEDICATIONS: He is currently on Flagyl, Rocephin, IV fluids, Toradol and Zofran. Negative for HIV, being seen by surgery and Infectious Disease. He is currently presenting with a small bowel obstruction with leukocytosis, on ceftriaxone and Flagyl. NG tube in place. Waiting for his bowels to wake up. I encouraged him to get out of bed to chair and walk if possible. Kvng Eugene DO MTDDelaney
--- NOTE | 2018-07-08 11:24 | CP.PCM.PN ---
<Vicki Barron - Last Filed: 07/08/18 14:27> Subjective - Date & Time of Evaluation Date of Evaluation: 07/08/18 Time of Evaluation: 11:21 - Subjective Subjective: ID progress note PGY-[address] Irwin NGT in place. Abdominal pain improves, dull ache, constant. No pass gas. no other acute complaint Objective - Vital Signs/Intake and Output Vital Signs (last 24 hours): Temp Pulse Resp BP Pulse Ox 98.4 F 75 20 146/79 94 L 07/08/18 08:17 07/08/18 08:17 07/08/18 08:17 07/08/18 08:17 07/08/18 08:17 Intake and Output: 07/08/18 07/08/18 06:59 18:59 Intake Total 1700 Output Total 0 Balance 1700 - Medications Medications: Current Medications Sodium Chloride (Sodium Chloride 0.9%) 1,000 mls @ 150 mls/hr IV .Q6H40M [facility] Last Admin: 07/08/18 01:00 Dose: 150 mls/hr Metronidazole (Flagyl) 500 mg in 100 mls @ 100 mls/hr IVPB Q8 [facility]; Protocol Stop: 07/15/18 14:01 Last Admin: 07/08/18 05:48 Dose: 100 mls/hr Ceftriaxone Sodium (Rocephin 1 Gram Ivpb) 1 gm in 100 mls @ 100 mls/hr IVPB DAILY [facility]; Protocol Stop: 07/15/18 10:45 Last Admin: 07/08/18 09:06 Dose: 100 mls/hr Ketorolac Tromethamine (Toradol) 30 mg IVP Q6H PRN PRN Reason: Pain, moderate (4-7) Last Admin: 07/07/18 14:32 Dose: 30 mg Ondansetron HCl (Zofran Inj) 4 mg IVP Q4H PRN PRN Reason: Nausea/Vomiting Last Admin: 07/07/18 05:00 Dose: 4 mg - Labs Labs: 07/08/18 05:44 07/08/18 05:44 - Constitutional Appears: No Acute Distress - Head Exam Head Exam: ATRAUMATIC, NORMAL INSPECTION, NORMOCEPHALIC - Eye Exam Eye Exam: EOMI, Normal appearance, PERRL. absent: Scleral icterus Pupil Exam: NORMAL ACCOMODATION - ENT Exam ENT Exam: Mucous Membranes Moist Additional comments: Non-digested food in suction - Neck Exam Additional comments: supple - Respiratory Exam Respiratory Exam: Clear to Ausculation Bilateral. absent: Rales, Rhonchi, Wheezes - Cardiovascular Exam Cardiovascular Exam: REGULAR RHYTHM, +S1, +S2 - GI/Abdominal Exam GI & Abdominal Exam: Soft, Tenderness (all quadrants), Diminished Bowel Sounds. absent: Guarding, Rigid, Normal Bowel Sounds - Extremities Exam Extremities Exam: absent: Calf Tenderness, Pedal Edema - Back Exam Back Exam: absent: CVA tenderness (L), CVA tenderness (R) - Neurological Exam Neurological Exam: Alert, Awake, Oriented x3 - Psychiatric Exam Psychiatric exam: Normal Affect, Normal Mood - Skin Skin Exam: Dry, Warm Assessment and Plan - Assessment and Plan (Free Text) Plan: Mr Farias. 43 AAM, with history of multiple SBO came in for SBO A: SBO with leukocytosis 13.9, likely adhesion Leukocytosis resovled Occasional blood in stool, anemia (Hb baseline 12-13) shellfish allergy P - Ceftriaxone and flagyl (day 2) pending blood culture. Worry about possible translocation of bacteria from gut to blood - NGT 350cc in 1 day/ NPO - Consider hemeoccult and/or colonoscopy. Managed per primary Lab/imaging: - CT a/p: SBO - HIV: neg - UCx: - BCx: - GI series: s/r/d/w Dr Irwin <Ghulam Irwin S - Last Filed: 07/08/18 19:33> Objective - Vital Signs/Intake and Output Vital Signs (last 24 hours): Temp Pulse Resp BP Pulse Ox 98.1 F 60 19 143/80 95 07/08/18 16:36 07/08/18 16:36 07/08/18 16:36 07/08/18 16:36 07/08/18 16:36 Intake and Output: 07/08/18 07/09/18 18:59 06:59 Intake Total 1700 Output Total 100 Balance 1600 - Medications Medications: Current Medications Sodium Chloride (Sodium Chloride 0.9%) 1,000 mls @ 150 mls/hr IV .Q6H40M [facility] Last Admin: 07/08/18 01:00 Dose: 150 mls/hr Metronidazole (Flagyl) 500 mg in 100 mls @ 100 mls/hr IVPB Q8 [facility]; Protocol Stop: 07/15/18 14:01 Last Admin: 07/08/18 13:15 Dose: 100 mls/hr Ceftriaxone Sodium (Rocephin 1 Gram Ivpb) 1 gm in 100 mls @ 100 mls/hr IVPB DAILY [facility]; Protocol Stop: 07/15/18 10:45 Last Admin: 07/08/18 09:06 Dose: 100 mls/hr Ketorolac Tromethamine (Toradol) 30 mg IVP Q6H PRN PRN Reason: Pain, moderate (4-7) Last Admin: 07/08/18 12:44 Dose: 30 mg Morphine Sulfate (Morphine) 1 mg IVP Q3 PRN PRN Reason: Pain, severe (8-10) Last Admin: 07/08/18 15:21 Dose: 1 mg Ondansetron HCl (Zofran Inj) 4 mg IVP Q4H PRN PRN Reason: Nausea/Vomiting Last Admin: 07/07/18 05:00 Dose: 4 mg - Labs Labs: 07/08/18 05:44 07/08/18 05:44 Assessment and Plan - Assessment and Plan (Free Text) Plan: Infectious diseases Attending Physician Attestation Patient seen and examined, discussed with medical educator. I have reviewed the patient's history of present illness, past medical, social, personal and family histories, pertinent physical exam findings, course so far in this hospital admission, pertinent laboratory and imaging results. I agree with the above findings, assessment and plan. In addition, continue Ceftriaxone and Flagyl for small bowel obstruction. If blood cx are negative, will d/c antibiotics.
[2018-07-08] MEDS: Morphine 2 mg/ml ISec IVP PRN ×2 (15:21→21:32)
[2018-07-08 21:22] LABS: URINE APPEARANCE SLIGHT-CLOUDY (CLEAR); URINE BILIRUBIN SMALL (NEGATIVE); URINE BLOOD NEGATIVE (NEGATIVE); URINE COLOR DARK YELLOW (YELLOW); URINE GLUCOSE (UA) NEGATIVE (NEGATIVE); URINE LEUKOCYTE ESTERASE NEGATIVE Leu/uL (NEGATIVE); URINE PROTEIN TRACE mg/dL (<30 mg/dL); URINE UROBILINOGEN 0.2 E.U./dL (<1 E.U./dL)
[2018-07-08 21:25] LABS: URINE BACTERIA TRACE /hpf; URINE RBC NEGATIVE /hpf (0-2); URINE WBC NEGATIVE /hpf (0-6)
[2018-07-09] MEDS: metroNIDAZOLE IV 500 mg/100 ml 500 MG/100 ML BAG IVPB SCH (06:24)
[2018-07-09 07:07] LABS: ALB/GLOB RATIO 1.1 (1.1-1.8); ALBUMIN 3.8 g/dL (3.0-4.8); ALT/SGPT 21 U/L (7-56); AST/SGOT 26 U/L (17-59); BLOOD UREA NITROGEN 14 mg/dL (7-21); CALCIUM 8.7 mg/dL (8.4-10.5); GFR NON-AFRICAN AMERICAN > 60
[2018-07-09 07:12] LABS: MEAN CELL VOLUME 93.9 fl (80.0-105.0); MEAN CORPUSCULAR HEMOGLOBIN 29.1 pg (25.0-35.0); RBC 4.12 10^6/uL (3.5-6.1); RED CELL DISTRIBUTION WIDTH 12.2 % (11.5-14.5); WHITE BLOOD COUNT 9.3 10^3/uL (4.5-11.0)
--- NOTE | 2018-07-09 07:24 | CP.PCM.PN ---
Subjective - Date & Time of Evaluation Date of Evaluation: 07/09/18 Time of Evaluation: 07:17 - Subjective Subjective: General Surgery Progress Note for Dr. Issa This 43M was seen and examined this Am at bedside over night he had two large bowel mvoments which he reports his discomfort has significantly improved after his second one. He deneis any fevers chills chest pain or SOB. His NGT had 450cc out overnight, we discussed removing the NGT to do improved clinical status with the possibility of reinserting if symptoms returned. Objective - Vital Signs/Intake and Output Vital Signs (last 24 hours): Temp Pulse Resp BP Pulse Ox 98.1 F 60 19 143/80 95 07/08/18 16:36 07/08/18 16:36 07/08/18 16:36 07/08/18 16:36 07/08/18 16:36 - Medications Medications: Current Medications Sodium Chloride (Sodium Chloride 0.9%) 1,000 mls @ 150 mls/hr IV .Q6H40M [facility] Last Admin: 07/08/18 01:00 Dose: 150 mls/hr Metronidazole (Flagyl) 500 mg in 100 mls @ 100 mls/hr IVPB Q8 [facility]; Protocol Stop: 07/15/18 14:01 Last Admin: 07/09/18 06:24 Dose: 100 mls/hr Ceftriaxone Sodium (Rocephin 1 Gram Ivpb) 1 gm in 100 mls @ 100 mls/hr IVPB DAILY [facility]; Protocol Stop: 07/15/18 10:45 Last Admin: 07/08/18 09:06 Dose: 100 mls/hr Ketorolac Tromethamine (Toradol) 30 mg IVP Q6H PRN PRN Reason: Pain, moderate (4-7) Last Admin: 07/08/18 12:44 Dose: 30 mg Morphine Sulfate (Morphine) 1 mg IVP Q3 PRN PRN Reason: Pain, severe (8-10) Last Admin: 07/08/18 21:32 Dose: 1 mg Ondansetron HCl (Zofran Inj) 4 mg IVP Q4H PRN PRN Reason: Nausea/Vomiting Last Admin: 07/07/18 05:00 Dose: 4 mg - Labs Labs: 07/08/18 05:44 07/09/18 06:00 - Constitutional Appears: Non-toxic, No Acute Distress - Head Exam Head Exam: ATRAUMATIC, NORMOCEPHALIC - Eye Exam Eye Exam: EOMI - ENT Exam ENT Exam: Mucous Membranes Moist - Respiratory Exam Respiratory Exam: NORMAL BREATHING PATTERN - Cardiovascular Exam Cardiovascular Exam: +S1, +S2 - GI/Abdominal Exam GI & Abdominal Exam: Soft. absent: Guarding, Rigid, Tenderness - Neurological Exam Neurological Exam: Alert, Awake - Psychiatric Exam Psychiatric exam: Normal Affect, Normal Mood - Skin Skin Exam: Dry, Intact Assessment and Plan - Assessment and Plan (Free Text) Assessment: 43M with resolved SBO Serial abdominal exams CLD F/U Labs Further recs per Dr. Luis Manuel Kan PGY3
[2018-07-09 08:09] VITALS: RESP 20
[2018-07-09] MEDS: cefTRIAXone 1 gm 1 GM/100 ML BAG IVPB SCH (09:58)
--- NOTE | 2018-07-09 10:31 | PN ---
DATE: 07/09/2018 SUBJECTIVE: The patient is seen earlier this morning. No fevers, no chills. PHYSICAL EXAMINATION: VITAL SIGNS: Temperature is 98, blood pressure is 140/70, respiratory 20, heart rate of 65. HEENT: Unremarkable. NECK: Supple. LUNGS: Have decreased breath sounds. HEART: Normal S1, S2. ABDOMEN: Soft, nontender. LABORATORY EXAMINATION: Reveals a white count of 9.3, hemoglobin of 12, platelets of 287. BUN of 14, creatinine of 0.7. Urinalysis is noted. Blood cultures are negative. HIV is negative. ASSESSMENT/PLAN: A 43-year-old male who is admitted with what appears to be as small bowel obstruction and now moving bowels and most likely secondary to adhesions and he has had bowel movements and his white count is improved and his abdominal pain is resolved. We will discontinue the antibiotics at this point the cultures are negative. We will discontinue Flagyl. Discontinue ceftriaxone and we will follow with you. Bala Robertson MD
[2018-07-09] MEDS: Sodium Chloride 0.9% 1,000 ML IV SCH (12:37)
--- NOTE | 2018-07-09 14:16 | RAD ---
Date of service: 07/08/2018 HISTORY: SBO COMPARISON: None. TECHNIQUE: Single water-soluble contrast upper GI series was performed. FINDINGS: Patient tolerated procedure well. ESOPHAGUS: Not visualized. Study was performed through an NG tube STOMACH: Gastric mucosa appear preserved. No evidence of ulceration or mass lesion. DUODENUM: Duodenal bulb appear preserved without evidence of ulceration or mass lesion HIATAL HERNIA: None demonstrated. OTHER FINDINGS: The small bowel is diffusely dilated. Transit of contrast through the small bowel is slow consistent with partial obstruction. The 2 are film shows contrast in the mid small bowel. The 3 hr 20 min film shows minimal progression. The 6 hr 50 min film shows contrast in the colon including the rectum. Rectal contrast is also seen on the 10 hr film. IMPRESSION: Partial small bowel obstruction as described above.
--- NOTE | 2018-07-09 14:17 | RAD ---
Date of service: 07/09/2018 HISTORY: comparison COMPARISON: Small bowel study performed 07/08/2018 FINDINGS: BOWEL: There is a small amount of residual contrast in the rectum. The small bowel contrast material is no longer seen. BONES: Normal. OTHER FINDINGS: None. IMPRESSION: There is a small amount of residual contrast in the rectum. The small bowel contrast material is no longer seen.
[2018-07-09] MEDS ORDERED: Fluticasone Nasal 50 mcg/Spray NS PRN (16:00)
[2018-07-10 07:03] LABS: MEAN CELL VOLUME 92.8 fl (80.0-105.0); MEAN CORPUSCULAR HEMOGLOBIN 28.9 pg (25.0-35.0); MEAN CORPUSCULAR HGB CONC 31.2 g/dl (31.0-37.0); MEAN PLATELET VOLUME 10.2 fl (7.0-11.0); RBC 4.15 10^6/uL (3.5-6.1); WHITE BLOOD COUNT 9.3 10^3/uL (4.5-11.0)
[2018-07-10 07:36] LABS: ALB/GLOB RATIO 1.1 (1.1-1.8); ALBUMIN 3.6 g/dL (3.0-4.8); ALT/SGPT 21 U/L (7-56); AST/SGOT 25 U/L (17-59); BLOOD UREA NITROGEN 7 mg/dL (7-21); CALCIUM 8.7 mg/dL (8.4-10.5); GFR NON-AFRICAN AMERICAN > 60
--- NOTE | 2018-07-10 08:32 | CP.PCM.PN ---
Subjective - Date & Time of Evaluation Date of Evaluation: 07/10/18 Time of Evaluation: 08:28 - Subjective Subjective: Surgery: Dr. Issa Pt seen and examined. Resting comfortably in bed. Feeling much better today. Pain resolved. Tolerating CLD. +BM. Objective - Vital Signs/Intake and Output Vital Signs (last 24 hours): Temp Pulse Resp BP Pulse Ox 98.2 F 72 20 133/84 98 07/10/18 06:00 07/10/18 06:00 07/10/18 06:00 07/10/18 06:00 07/10/18 06:00 Intake and Output: 07/10/18 07/10/18 06:59 18:59 Intake Total 120 Balance 120 - Medications Medications: Current Medications Acetaminophen (Tylenol 325mg Tab) 650 mg PO Q4H PRN PRN Reason: Pain, Mild (1-3) Fluticasone Propionate (Flonase) 1 actuation NS DAILY PRN PRN Reason: Allergy symptoms Last Admin: 07/09/18 16:21 Dose: 1 spr Morphine Sulfate (Morphine) 1 mg IVP Q3 PRN PRN Reason: Pain, severe (8-10) Last Admin: 07/08/18 21:32 Dose: 1 mg Ondansetron HCl (Zofran Inj) 4 mg IVP Q4H PRN PRN Reason: Nausea/Vomiting Last Admin: 07/07/18 05:00 Dose: 4 mg Tramadol HCl (Ultram) 50 mg PO Q6 PRN PRN Reason: Pain, moderate (4-7) - Labs Labs: 07/10/18 05:30 07/10/18 05:30 - Constitutional Appears: Non-toxic, No Acute Distress - Head Exam Head Exam: ATRAUMATIC, NORMOCEPHALIC - Eye Exam Eye Exam: EOMI - ENT Exam ENT Exam: Mucous Membranes Moist - Neck Exam Neck Exam: Full ROM - Respiratory Exam Respiratory Exam: NORMAL BREATHING PATTERN. absent: Accessory Muscle Use, Respiratory Distress - GI/Abdominal Exam GI & Abdominal Exam: Soft. absent: Distended, Firm, Guarding, Rigid, Tenderness, Rebound - Extremities Exam Extremities Exam: absent: Calf Tenderness, Pedal Edema - Neurological Exam Neurological Exam: Alert, Awake, Oriented x3 Assessment and Plan - Assessment and Plan (Free Text) Assessment: 43M w. SBO, resolving -Will start FLD today, ADAT -serial abd exams -encourage ambulation -clear for D/C when tolerating regular diet -d/w attending Greg PGY4
--- NOTE | 2018-07-10 09:20 | CP.PCM.CON ---
<Luis Orozco - Last Filed: 07/10/18 10:16> History of Present Illness - History of Present Illness History of Present Illness: GI Fellow PGY4, Patrizia note. Casper Farias is a very pleasant 43M presenting with abdominal pain and found to have partial SBO. He was given IV fluid and Abx, eventually required NGT. Imaging has shown progressive improvement in obstruction. Now, NGT is out, he is tolerating CLD and having non-bloody BMs. He has had GI problems since his youth, likely malrotation and s/p previous GI surgeries. This is his 3rd SBO episode in his life, which started in 2012. Denies blood in stool, frequent diarrhea. PMHx - as above. PSHx - Malrotation surgery at . Revision surgery at 13yo. Colonoscopy in 2013 reportedly normal. FmHx - Adopted [employer] - Smokes cigars daily, occasional etoh use. 1 year ago. 12pt ROS completed and negative except for above. 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 - PULMONARY Hx Respiratory Disorders: No - NEUROLOGICAL Hx Neurological Disorder: No - HEENT Hx HEENT Problems: No - RENAL Hx Chronic Kidney Disease: No - ENDOCRINE/METABOLIC Hx Endocrine Disorders: No - HEMATOLOGICAL/ONCOLOGICAL Hx Blood Disorders: No - INTEGUMENTARY Hx Dermatological Problems: No - MUSCULOSKELETAL/RHEUMATOLOGICAL Hx Falls: No - GASTROINTESTINAL Hx Gastrointestinal Disorders: Yes (twisted intestine as a youth) Hx Gastroesophageal Reflux: Yes Other/Comment: obese, hospitilized for sbo at [facility] [place] 08/2015 and 06/2016 - GENITOURINARY/GYNECOLOGICAL Hx Genitourinary Disorders: No Other/Comment: pt was premature baby - PSYCHIATRIC Hx Psychophysiologic Disorder: No Hx Anxiety: No Hx Bipolar Disorder: No Hx Depression: No Hx Emotional Abuse: No Hx Hallucinations: No Hx Panic Symptoms: No Hx Post Traumatic Stress Disorder: No Hx Psychosis: No Hx Physical Abuse: No Hx Schizophrenia: No Hx Sexual Abuse: No - SURGICAL HISTORY Hx Surgeries: Yes Other/Comment: twisted intestine in youth has had multiple surgeries the last one was age 13 at [facility], had sx as for inguinal hernia repair, subtotal colectomy - ANESTHESIA Hx Anesthesia: Yes Hx Anesthesia Reactions: No Hx Malignant Hyperthermia: No Meds Allergies/Adverse Reactions: Allergies Allergy/AdvReac Type Severity Reaction Status Date / Time shellfish derived Allergy SHORTNESS Verified 08/24/15 20:31 OF BREATH - Medications Medications: Current Medications Acetaminophen (Tylenol 325mg Tab) 650 mg PO Q4H PRN PRN Reason: Pain, Mild (1-3) Docusate Sodium (Colace) 100 mg PO BID L[facility]YD Fluticasone Propionate (Flonase) 1 actuation NS DAILY PRN PRN Reason: Allergy symptoms Last Admin: 07/09/18 16:21 Dose: 1 spr Morphine Sulfate (Morphine) 1 mg IVP Q3 PRN PRN Reason: Pain, severe (8-10) Last Admin: 07/08/18 21:32 Dose: 1 mg Ondansetron HCl (Zofran Inj) 4 mg IVP Q4H PRN PRN Reason: Nausea/Vomiting Last Admin: 07/07/18 05:00 Dose: 4 mg Tramadol HCl (Ultram) 50 mg PO Q6 PRN PRN Reason: Pain, moderate (4-7) Physical Exam - Constitutional Appears: Well, Non-toxic - Head Exam Head Exam: ATRAUMATIC, NORMAL INSPECTION - Eye Exam Eye Exam: EOMI, Normal appearance - ENT Exam ENT Exam: Mucous Membranes Moist, Normal Exam - Respiratory Exam Respiratory Exam: Clear to Auscultation Bilateral, NORMAL BREATHING PATTERN - Cardiovascular Exam Cardiovascular Exam: REGULAR RHYTHM, +S1, +S2 - GI/Abdominal Exam GI & Abdominal Exam: Normal Bowel Sounds, Soft, Tenderness. absent: Organomegal y Additional comments: large well healed horizontal surgical scar across abdomen. smaller linear surgical scar in RLQ. - Extremities Exam Extremities exam: Positive for: normal inspection. Negative for: pedal edema - Neurological Exam Neurological exam: Alert, CN II-XII Intact, Oriented x3 - Psychiatric Exam Psychiatric exam: Normal Affect, Normal Mood - Skin Skin Exam: Normal Color, Warm Results - Vital Signs Recent Vital Signs: Last Vital Signs Temp 98.2 F 07/10/18 06:00 Pulse 72 07/10/18 06:00 Resp 20 07/10/18 06:00 BP 133/84 07/10/18 06:00 Pulse Ox 98 07/10/18 06:00 - Labs Result Diagrams: 07/10/18 05:30 07/10/18 05:30 Labs: Laboratory Results - last 24 hr 07/10/18 07/10/18 05:30 05:30 WBC 9.3 RBC 4.15 Hgb 12.0 L Hct 38.5 L MCV 92.8 MCH 28.9 MCHC 31.2 RDW 12.0 Plt Count 291 MPV 10.2 Sodium 140 Potassium 3.5 L Chloride 105 Carbon Dioxide 30 Anion Gap 9 L BUN 7 Creatinine 0.8 Est GFR ( Amer) > 60 Est GFR (Non-Af Amer) > 60 Random Glucose 87 Calcium 8.7 Total Bilirubin 0.4 AST 25 ALT 21 Alkaline Phosphatase 38 Total Protein 6.9 Albumin 3.6 Globulin 3.2 Albumin/Globulin Ratio 1.1 Assessment & Plan - Assessment and Plan (Free Text) Assessment: #Partial SBO #Obesity #Congenital gut malrotation s/p surgery at . PLAN: -CT A/P with IV contrast only and other GI imaging reviewed. Improving SBO. -SBO likely a result of adhesions from multiple surgery in childhood. Doubt IBD or intestinal mass. -Recommend to continue to advance diet as tolerated per surgical recommendations . -I advised patient the most important thing to prevent this problem is to eat small meals that are easy to chew. No "tough" meals. Drink lots of water with food. Patient understands. -I reinforced that he stop eating and come to the hospital urgently if these symptoms reappear which is very likely. -Recommend PO contrast CT A/P if this were to happen again to help identify transition point, masses etc. Case discussed with Dr. Cabral, see attestation. - Date & Time Date: 07/10/18 Time: 10:17 <Shashi Cabral - Last Filed: 07/10/18 10:36> Meds - Medications Medications: Current Medications Acetaminophen (Tylenol 325mg Tab) 650 mg PO Q4H PRN PRN Reason: Pain, Mild (1-3) Docusate Sodium (Colace) 100 mg PO BID L[facility]YD Last Admin: 07/10/18 09:52 Dose: 100 mg Fluticasone Propionate (Flonase) 1 actuation NS DAILY PRN PRN Reason: Allergy symptoms Last Admin: 07/09/18 16:21 Dose: 1 spr Morphine Sulfate (Morphine) 1 mg IVP Q3 PRN PRN Reason: Pain, severe (8-10) Last Admin: 07/08/18 21:32 Dose: 1 mg Ondansetron HCl (Zofran Inj) 4 mg IVP Q4H PRN PRN Reason: Nausea/Vomiting Last Admin: 07/07/18 05:00 Dose: 4 mg Tramadol HCl (Ultram) 50 mg PO Q6 PRN PRN Reason: Pain, moderate (4-7) Results - Vital Signs Recent Vital Signs: Last Vital Signs Temp 98.2 F 07/10/18 06:00 Pulse 72 07/10/18 06:00 Resp 20 07/10/18 06:00 BP 133/84 07/10/18 06:00 Pulse Ox 98 07/10/18 06:00 - Labs Result Diagrams: 07/10/18 05:30 07/10/18 05:30 Labs: Laboratory Results - last 24 hr 07/10/18 07/10/18 05:30 05:30 WBC 9.3 RBC 4.15 Hgb 12.0 L Hct 38.5 L MCV 92.8 MCH 28.9 MCHC 31.2 RDW 12.0 Plt Count 291 MPV 10.2 Sodium 140 Potassium 3.5 L Chloride 105 Carbon Dioxide 30 Anion Gap 9 L BUN 7 Creatinine 0.8 Est GFR ( Amer) > 60 Est GFR (Non-Af Amer) > 60 Random Glucose 87 Calcium 8.7 Total Bilirubin 0.4 AST 25 ALT 21 Alkaline Phosphatase 38 Total Protein 6.9 Albumin 3.6 Globulin 3.2 Albumin/Globulin Ratio 1.1 Attending/Attestation - Attestation I have personally seen and examined this patient.: Yes I have fully participated in the care of the patient.: Yes I have reviewed all pertinent clinical information: Yes Notes (Text): 07/10/18 10:35 The pt was seen, examined and discussed with Dr. Orozco. Agree with the findings, assessment and recommendations as documented above.
[2018-07-10] MEDS ORDERED: Potassium Chloride 20 mEq ER Tab PO ONE (11:12)
--- NOTE | 2018-07-10 12:28 | PN ---
DATE: 07/10/2018 SUBJECTIVE: I saw him this morning, resting in bed. He was told by the surgeon that we are going to watch him one more day. He is on Colace twice a day, Flonase, Morphine, Tylenol, Ultram and Zofran. He did have some sinus issues, but he told that the Flonase is helping him. He is eating the clear fluids well. PHYSICAL EXAMINATION: VITAL SIGNS: He has 98.2 temp, 72 pulse, 133/84 blood pressure, 20 respiratory rate and 90% O2 sat on room air. HEENT: Head is atraumatic and normocephalic. HEART: Regular rate. LUNGS: Decreased breath sounds, but clear to auscultation. ABDOMEN: Soft, mildly distended and nontender. Positive bowel sounds distant, but present. No guarding. No rebound. EXTREMITIES: No edema. He is getting out of bed to chair. LABORATORY DATA: He has a 9.3 white count, 12 hemoglobin, 37.5 hematocrit with 291 platelets. He has a sodium 140, potassium 3.5, we will give him some potassium, BUN 7, creatinine 0.8, GFR is greater than 60, sugar is 87, calcium is 8.7, total bili is 0.4, AST is 25, ALT is 21, alk phos 38 and total protein 6.9. HIV is negative. He is being seen by Surgery, Infectious Disease. He had a flat plate of the abdomen yesterday. It shows there is small amount of residual contrast in the rectum, Small bowel obstruction is resolving. He is on liquid diet as per Surgery. I called in GI to help him with a diet, to prevent more constipation. I have plans for discharge him once we get the okay from Surgery and I was told by the patient tomorrow. Kvng Eugene DO MTDD
[2018-07-10 17:50] VITALS: O2SAT 96
--- NOTE | 2018-07-10 22:40 | PN ---
DATE: 07/10/2018 SUBJECTIVE: Patient is in bed, in no acute distress. OBJECTIVE: VITAL SIGNS: On exam, temperature is 97, blood pressure is 130/60, respiratory rate 16. HEENT: Unremarkable. NECK: Supple. LUNGS: Have decreased breath sounds. HEART: Normal S1 and S2. ABDOMEN: Soft, nontender. LABORATORY EXAMINATION: Reveals a white count of 9.3, hemoglobin of 12. Chemistries reveal a BUN of 7, creatinine of 0.8. Urinalysis is noted. Serology is noted. Microbiology reveals the blood cultures are negative. Urine cultures are negative. ASSESSMENT AND PLAN: This is a 43-year-old male who is admitted with what appears to be a small bowel obstruction, now is resolving. Currently now off antibiotics, afebrile. The patient is at risk for developing nosocomial infections. We will follow closely with you. Bala Robertson MD
[2018-07-11 07:11] LABS: HEMOGLOBIN 12.7 g/dL (14.0-18.0); MEAN CELL VOLUME 91.4 fl (80.0-105.0); MEAN CORPUSCULAR HEMOGLOBIN 29.5 pg (25.0-35.0); MEAN CORPUSCULAR HGB CONC 32.2 g/dl (31.0-37.0); MEAN PLATELET VOLUME 10.4 fl (7.0-11.0); RBC 4.31 10^6/uL (3.5-6.1); RED CELL DISTRIBUTION WIDTH 11.7 % (11.5-14.5); WHITE BLOOD COUNT 9.9 10^3/uL (4.5-11.0)
--- NOTE | 2018-07-11 07:19 | CP.PCM.PN ---
<AndersonVicki - Last Filed: 07/11/18 10:13> Subjective - Date & Time of Evaluation Date of Evaluation: 07/11/18 Time of Evaluation: 07:18 - Subjective Subjective: ID Progress Note PGY-[address] Irwin Pt tolerated diet. Had BM yesterday. Denies f/c, CP, SOB, N/V/D/C, dysuria Objective - Vital Signs/Intake and Output Vital Signs (last 24 hours): Temp Pulse Resp BP Pulse Ox 97.3 F L 61 20 131/65 96 07/10/18 14:00 07/10/18 14:00 07/10/18 14:00 07/10/18 14:00 07/10/18 14:00 Intake and Output: 07/11/18 07/11/18 06:59 18:59 Intake Total 480 Balance 480 - Medications Medications: Current Medications Acetaminophen (Tylenol 325mg Tab) 650 mg PO Q4H PRN PRN Reason: Pain, Mild (1-3) Docusate Sodium (Colace) 100 mg PO BID LLOYD Last Admin: 07/10/18 17:32 Dose: 100 mg Fluticasone Propionate (Flonase) 1 actuation NS DAILY PRN PRN Reason: Allergy symptoms Last Admin: 07/09/18 16:21 Dose: 1 spr Morphine Sulfate (Morphine) 1 mg IVP Q3 PRN PRN Reason: Pain, severe (8-10) Last Admin: 07/08/18 21:32 Dose: 1 mg Ondansetron HCl (Zofran Inj) 4 mg IVP Q4H PRN PRN Reason: Nausea/Vomiting Last Admin: 07/07/18 05:00 Dose: 4 mg Tramadol HCl (Ultram) 50 mg PO Q6 PRN PRN Reason: Pain, moderate (4-7) - Labs Labs: 07/10/18 05:30 07/10/18 05:30 - Constitutional Appears: No Acute Distress - Head Exam Head Exam: ATRAUMATIC, NORMAL INSPECTION, NORMOCEPHALIC - Eye Exam Eye Exam: EOMI, Normal appearance, PERRL. absent: Scleral icterus Pupil Exam: NORMAL ACCOMODATION - ENT Exam ENT Exam: Mucous Membranes Moist - Neck Exam Additional comments: supple - Respiratory Exam Respiratory Exam: Clear to Ausculation Bilateral. absent: Rales, Rhonchi, Wheezes - Cardiovascular Exam Cardiovascular Exam: REGULAR RHYTHM, +S1, +S2 - GI/Abdominal Exam GI & Abdominal Exam: Distended, Soft, Tenderness (mild dull all quadrants per palpation), Normal Bowel Sounds. absent: Guarding, Rigid Additional comments: no suprapubic tendernss - Extremities Exam Extremities Exam: absent: Calf Tenderness, Pedal Edema - Back Exam Back Exam: absent: CVA tenderness (L), CVA tenderness (R) - Neurological Exam Neurological Exam: Alert, Awake, Oriented x3 - Psychiatric Exam Psychiatric exam: Normal Affect, Normal Mood - Skin Skin Exam: Dry, Warm Assessment and Plan - Assessment and Plan (Free Text) Plan: Mr Farias. 43 AAM, with history of multiple SBO and multiple abdominal surgeries in childhood came in for SBO A: SBO with leukocytosis 13.9, likely adhesion from multiple surgery in childhood - resolved Had ruled out IBD or intestinal mass by GI team. Occasional blood in stool, anemia (Hb baseline 12-13) shellfish allergy P - Ceftriaxone and flagyl x 3 days, discontinued on 07/10/18, culture negative - Soft bland diet - GI team on board. Encourage pt follow up with GI outpatient. - At risk for nosocomial infection Lab/imaging: - CT a/p (07/06/18): SBO - HIV: neg - UCx: Neg - BCx: Neg x 3d - GI series (07/08/18): SBO - Abx x-ray (07/09/18): contrast in small bowl cleared. s/r/d/w Dr Irwin <Ghulam Irwin S - Last Filed: 07/11/18 16:57> Objective - Vital Signs/Intake and Output Vital Signs (last 24 hours): Temp Pulse Resp BP Pulse Ox 98.1 F 62 20 108/60 96 07/11/18 08:09 07/11/18 08:09 07/11/18 08:09 07/11/18 08:09 07/11/18 08:09 Intake and Output: 07/11/18 07/11/18 06:59 18:59 Intake Total 480 Balance 480 - Labs Labs: 07/11/18 06:00 07/11/18 06:00 Assessment and Plan - Assessment and Plan (Free Text) Plan: Infectious diseases Attending Physician Attestation Patient seen and examined, discussed with medical screener. I have reviewed the patient's history of present illness, past medical, social, personal and family histories, pertinent physical exam findings, course so far in this hospital admission, pertinent laboratory and imaging results. I agree with the above findings, assessment and plan. In addition, continue to monitor off antibiotics in this patient with small bowel obstruction, improved, clinically.
--- NOTE | 2018-07-11 07:49 | CP.PCM.PN ---
Subjective - Date & Time of Evaluation Date of Evaluation: 07/11/18 Time of Evaluation: 07:45 - Subjective Subjective: Noah Marin, PGY1 Surgery Progress Note for Dr. Issa Patient was seen and examined at bedside this morning. He is tolerating his diet. Denies abdominal pain, nausea, vomiting at this time. No adverse overnight events. Patient feels much improved since admission. Objective - Vital Signs/Intake and Output Vital Signs (last 24 hours): Temp Pulse Resp BP Pulse Ox 97.3 F L 61 20 131/65 96 07/10/18 14:00 07/10/18 14:00 07/10/18 14:00 07/10/18 14:00 07/10/18 14:00 Intake and Output: 07/11/18 07/11/18 06:59 18:59 Intake Total 480 Balance 480 - Medications Medications: Current Medications Acetaminophen (Tylenol 325mg Tab) 650 mg PO Q4H PRN PRN Reason: Pain, Mild (1-3) Docusate Sodium (Colace) 100 mg PO BID LLOYD Last Admin: 07/10/18 17:32 Dose: 100 mg Fluticasone Propionate (Flonase) 1 actuation NS DAILY PRN PRN Reason: Allergy symptoms Last Admin: 07/09/18 16:21 Dose: 1 spr Morphine Sulfate (Morphine) 1 mg IVP Q3 PRN PRN Reason: Pain, severe (8-10) Last Admin: 07/08/18 21:32 Dose: 1 mg Ondansetron HCl (Zofran Inj) 4 mg IVP Q4H PRN PRN Reason: Nausea/Vomiting Last Admin: 07/07/18 05:00 Dose: 4 mg Tramadol HCl (Ultram) 50 mg PO Q6 PRN PRN Reason: Pain, moderate (4-7) - Labs Labs: 07/11/18 06:00 07/10/18 05:30 - Constitutional Appears: No Acute Distress - Head Exam Head Exam: ATRAUMATIC, NORMAL INSPECTION, NORMOCEPHALIC - ENT Exam ENT Exam: Mucous Membranes Moist - Respiratory Exam Respiratory Exam: Clear to Ausculation Bilateral. absent: Rales, Rhonchi, Wheezes - Cardiovascular Exam Cardiovascular Exam: RRR - GI/Abdominal Exam GI & Abdominal Exam: Soft. absent: Distended, Guarding, Rigid, Tenderness, Rebound - Extremities Exam Extremities Exam: Full ROM, Normal Capillary Refill, Normal Inspection. absent: Joint Swelling, Pedal Edema - Neurological Exam Neurological Exam: Alert, Awake, Oriented x3 - Psychiatric Exam Psychiatric exam: Normal Affect, Normal Mood - Skin Skin Exam: Dry, Intact, Normal Color, Warm Assessment and Plan - Assessment and Plan (Free Text) Assessment: 43 y/o M with SBO that is now resolved Plan: - Patient tolerating diet well - SBO has improved with conservative management. No surgical intervention. Patient is cleared for discharge from surgical standpoint - Further recs as per primary team - Discussed with Attending Physician. Further recs as per Dr. Issa
[2018-07-11 08:10] VITALS: BP 108/60; PULSE 62; TEMP 98.1
--- NOTE | 2018-07-11 08:13 | PN ---
DATE: 07/09/2018 SUBJECTIVE: I saw the patient in the resting area where he had a flat plate of his abdomen. He is doing much better. He is able to eat Jell-O. He passed 2 bowel movements. He is passing gas. He has no pain. He is in better spirits. He is still uncomfortable though. PHYSICAL EXAMINATION: VITAL SIGNS: Temperature 98.6, pulse 65, blood pressure 136/64, respiratory rate 20, O2 saturations 97% on room air. HEENT: Head is atraumatic and normocephalic. Throat is moist. NECK: Supple. HEART: Regular rate. LUNGS: Decreased breath sounds, but clear. ABDOMEN: Mildly distended, decreased bowel sounds, but present. No guarding, no rebound or CVA tenderness. EXTREMITIES: No edema. LABORATORY DATA: White count 9.3, hemoglobin 12, hematocrit 38.7 with platelets 281. Sodium 143, potassium 4.2, BUN 40, creatinine 0.7, GFR is greater than 60, sugar is 86, calcium 8.7, total bilirubin is 0.5, AST is 26, ALT 21, alkaline phosphatase 39, and total protein is 7.3. MEDICATIONS: He is currently on Flagyl IV, morphine and Rocephin IV, IV fluids at 160 mL an hour, Toradol, and Zofran. He has been seen by Surgery, Infectious Disease. ASSESSMENT AND PLAN: We are waiting for the flat plate of the abdomen to come back to see how he is doing with his intestines. I am excited that he is at least eating a little bit and had two bowel movements. He is in the right direction. I called in GI, he wants to talk to GI about possible diet that prevents bowel obstructions. We will check his legs tomorrow, make sure he is walking the floors. Kvng Eugene DO
[2018-07-11 08:16] LABS: ALB/GLOB RATIO 1.1 (1.1-1.8); ALT/SGPT 22 U/L (7-56); AST/SGOT 34 U/L (17-59); BLOOD UREA NITROGEN 6 mg/dL (7-21); CALCIUM 9.3 mg/dL (8.4-10.5); GFR NON-AFRICAN AMERICAN > 60
--- NOTE | 2018-07-11 10:22 | DS ---
HISTORY OF PRESENT ILLNESS: He is resting comfortably in bed. He slept well last night. He has a good appetite, asked the questions about his bowl, he discussed with GI also, discussed with Surgery. I put him on Colace three times a day. He has had small bowel obstruction, abdominal pain, constipation, nausea, vomiting. He is going to go home on Colace three times a day, Flonase, tramadol, and Zofran as needed. PHYSICAL EXAMINATION: VITAL SIGNS: He has a 98.1 temp, 62 pulse, 108/60 blood pressure, 20 respiratory rate and 96% O2 sat on room air. HEENT: Head is atraumatic, normocephalic. HEART: Regular rate. LUNGS: Clear to auscultation. ABDOMEN: Obese, positive bowel sounds, nontender, no volume, no rebound, no CVA tenderness. EXTREMITIES: No edema. LABORATORY DATA: He has 9.9 white count, 12.7 hemoglobin, 39.4 hematocrit, 302 platelets, 139 sodium, potassium of 3.6. BUN 6, creatinine 0.8, GFR is greater than 60. Sugar is 84, calcium 9.3, total bili is 0.5. AST is 34, ALT is 22, alk phos is 41, total protein 7.6. He was seen with small bowel obstruction and was seen by Surgery, Infectious Disease, GI, and thankfully, he did not have to have an operation, and it resolved, and we will continue to follow him closely. We will see him in the office. He is to drink more water, do more exercise, take the Colace three times a day. Kvng Eugene DO
== END 2018-07-11 12:25 | disposition home or self-care (01) | DRG 389 ==
LOC: ED 22:23 → ERH 07-07 03:22 → 3RNO 07-07 16:42
PROVIDERS: ADMIT Family Medicine; ATTEND Family Medicine
DX: K56.600 Partial intestinal obstruction, unspecified as to cause (principal); Z68.41 Body mass index [BMI] 40.0-44.9, adult; Z87.19 Personal history of other diseases of the digestive system; D64.9 Anemia, unspecified; E66.01 Morbid (severe) obesity due to excess calories; K21.9 Gastro-esophageal reflux disease without esophagitis; N28.1 Cyst of kidney, acquired; Z91.013 Allergy to seafood; F17.290 Nicotine dependence, other tobacco product, uncomplicated; R40.2413 Glasgow coma scale score 13-15, at hospital admission

== ENCOUNTER 2018-10-16 16:46 | Inpatient (IN) | payer OTHER ==
[2018-10-16 16:47] VITALS: BMI 39.8
[2018-10-16 17:38] LABS: HEMOGLOBIN 14.1 g/dL (14.0-18.0); MEAN CELL VOLUME 91.9 fl (80.0-105.0); MEAN CORPUSCULAR HEMOGLOBIN 30.1 pg (25.0-35.0); MEAN CORPUSCULAR HGB CONC 32.8 g/dl (31.0-37.0); RBC 4.68 10^6/uL (3.5-6.1); RED CELL DISTRIBUTION WIDTH 12.1 % (11.5-14.5); WHITE BLOOD COUNT 10.6 10^3/uL (4.5-11.0)
[2018-10-16 17:48] LABS: INR 1.28; PARTIAL THROMBOPLASTIN TIME 38.4 Seconds (26.9-38.3); PROTHROMBIN TIME 14.2 SECONDS (9.4-12.5)
[2018-10-16 17:51] LABS: ALB/GLOB RATIO 1.2 (1.1-1.8); ALBUMIN 4.6 g/dL (3.0-4.8); ALT/SGPT 17 U/L (7-56); AST/SGOT 28 U/L (17-59); BLOOD UREA NITROGEN 12 mg/dL (7-21); CALCIUM 9.7 mg/dL (8.4-10.5); GFR NON-AFRICAN AMERICAN > 60; LIPASE 45 U/L (23-300)
--- NOTE | 2018-10-16 18:00 | ED PDOC ---
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 The patient states he was ingesting some food when he immediately experienced pain. He states he was unable to move his bowels and prevented himself from ingestiing any food since. He reports attempting to self-medicate by applying warm compression packs to his abdomen as well as attempting to retch. He denies taking any medication for his symptoms. Of note, patient reports having 3 episodes of SBO requiring nasogastric tube placement in the past with his most recent in 07/2018. PCP: Dr. Eugene Specialist:Dr. 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 - Pulmonary Hx Respiratory Disorders: No - Neurological Hx Neurological Disorder: No - HEENT Hx HEENT Disorder: No - Renal Hx Renal Disorder: No - Endocrine/Metabolic Hx Endocrine Disorders: No - Hematological/Oncological Hx Blood Disorders: No - Integumentary Hx Dermatological Disorder: No - Musculoskeletal/Rheumatological Hx Falls: No - Gastrointestinal Hx Gastrointestinal Disorders: Yes (twisted intestine as a youth) Hx Gastroesophageal Reflux: Yes Other/Comment: obese, hospitilized for [place] at [facility] [place] and 06/2016 - Genitourinary/Gynecological Hx Genitourinary Disorders: No Other/Comment: pt was premature baby - Psychiatric Hx Psychophysiologic Disorder: No Hx Anxiety: No Hx Bipolar Disorder: No Hx Depression: No Hx Emotional Abuse: No Hx Hallucinations: No Hx Panic Disorder: No Hx Post Traumatic Stress Disorder: No Hx Psychosis: No Hx Physical Abuse: No Hx Schizophrenia: No Hx Sexual Abuse: No Hx Substance Use: No - Surgical History Other/Comment: twisted intestine in youth has had multiple surgeries the last one was age 13 at [facility] [place] [place], had sx as for inguinal hernia repair, subtotal colectomy - Anesthesia Hx Anesthesia: Yes Hx Anesthesia Reactions: No Hx Malignant Hyperthermia: No Family/Social History - Physician Review Nursing Documentation Reviewed: Yes Family/Social History: Unknown Family HX Smoking Status: Never Smoked Hx Alcohol Use: Yes (social) Hx Substance Use: No Hx Substance Use Treatment: Yes Allergies/Home Meds Allergies/Adverse Reactions: Allergies shellfish derived Allergy (Verified 08/24/15 20:31) SHORTNESS OF BREATH Review of Systems - Physician Review All systems were reviewed & negative as marked: Yes - Review of Systems Gastrointestinal: Abdominal Pain, Constipation, Nausea, Anorexia. absent: Stool Changes Physical Exam Vital Signs Reviewed: Yes Vital Signs Temp Pulse Resp BP Pulse Ox 10/16/18 17:27 98 F 76 18 124/64 96 10/16/18 17:08 98.3 F 74 19 124/64 98 Temperature: Afebrile Blood Pressure: Normal Pulse: Regular Respiratory Rate: Normal Appearance: Positive for: Well-Appearing, Non-Toxic, Comfortable Mental Status: Positive for: Alert and Oriented X 3 - Systems Exam Head: Present: Atraumatic, Normocephalic Pupils: Present: PERRL Extroacular Muscles: Present: EOMI Conjunctiva: Present: Normal Mouth: Present: Moist Mucous Membranes Neck: Present: Normal Range of Motion Respiratory/Chest: Present: Clear to Auscultation, Good Air Exchange. No: Respiratory Distress Cardiovascular: Present: Regular Rate and Rhythm, Normal S1, S2. No: Murmurs Abdomen: Present: Tenderness (diffuse tenderness of the abdomen), Distention, Normal Bowel Sounds. No: Peritoneal Signs Lower Extremity: Present: Normal Inspection Neurological: Present: Speech Normal, Motor Func Grossly Intact, Normal Sensory Function Skin: Present: Warm, Dry, Rashes, Normal Color Psychiatric: Present: Alert, Oriented x 3, Normal Insight, Normal Concentration Medical Decision Making ED Course and Treatment: 10/16/18 18:48 Impression: 43M w/ h/o adhesions and SBO presenting for abdominal pain Plan --Labs --IV Fluids --Reglan --Toradol --CT a/p --EKG --CXR --Reassess & disposition Progress Notes - Lab Interpretations Lab Results: PT 14.2 SECONDS (9.4-12.5) H 10/16/18 17:00 INR 1.28 10/16/18 17:00 APTT 38.4 Seconds (26.9-38.3) H 10/16/18 17:00 Total Bilirubin 0.5 mg/dL (0.2-1.3) 10/16/18 17:00 AST 28 U/L (17-59) 10/16/18 17:00 ALT 17 U/L (7-56) 10/16/18 17:00 Alkaline Phosphatase 51 U/L (38-126) 10/16/18 17:00 Total Protein 8.5 g/dL (5.8-8.3) H 10/16/18 17:00 Albumin 4.6 g/dL (3.0-4.8) 10/16/18 17:00 Globulin 3.9 gm/dL 10/16/18 17:00 Albumin/Globulin Ratio 1.2 (1.1-1.8) 10/16/18 17:00 Lipase 45 U/L (23-300) 10/16/18 17:00 10/16/18 17:00 10/16/18 17:00 Lab Results 10/16/18 17:00: Sodium 140, Potassium 4.0, Chloride 101, Carbon Dioxide 29, Anion Gap 14, BUN 12, Creatinine 0.9, Est GFR ( Amer) > 60, Est GFR (Non- Af Amer) > 60, Random Glucose 81, Calcium 9.7, Total Bilirubin 0.5, AST 28, ALT 17, Alkaline Phosphatase 51, Troponin I < 0.01, NT-Pro-B Natriuret Pep < 11.1, Total Protein 8.5 H, Albumin 4.6, Globulin 3.9, Albumin/Globulin Ratio 1.2, Lipase 45 10/16/18 17:00: PT 14.2 H, INR 1.28, APTT 38.4 H 10/16/18 17:00: WBC 10.6, RBC 4.68, Hgb 14.1, Hct 43.0, MCV 91.9, MCH 30.1, MCHC 32.8, RDW 12.1, Plt Count 327, MPV 10.0 I have reviewed the lab results: Yes - RAD Interpretation Radiology Orders: 10/16/18 17:21 CHEST PORTABLE [RAD] Stat 10/16/18 17:51 ABD & PELVIS PO CONTRAST ONLY [CT] Stat Disposition/Present on Arrival - Present on Arrival History of DVT/PE: No History of Uncontrolled Diabetes: No Urinary Catheter: No History of Decub. Ulcer: No History Surgical Site Infection Following: None - Disposition Forms: Amen. (Mozambican)
[2018-10-16] MEDS ORDERED: Barium Sulfate Susp 2.1% w/v, 2.0% w/w 450 mL Bottle PO ONE (18:02)
[2018-10-16 18:03] LABS: TROPONIN I < 0.01 ng/mL
[2018-10-16 18:07] LABS: B-TYPE NATRIURETIC PEPTIDE < 11.1 pg/mL (0-450)
[2018-10-16] MEDS ORDERED: Sodium Chloride 0.9% 1,000 ML IV STA (18:44)
--- NOTE | 2018-10-16 21:07 | ED PDOC ---
Arrival/HPI - General Chief Complaint: Abdominal Pain Past Medical History - Travel History Have you recently traveled outside US w/in the past 3 mons?: No - Past History Past History: Non-Contributing - Infectious Disease Hx of Infectious Diseases: None - Tetanus Immunization Tetanus Immunization: Unknown - Past Medical History Past Medical History: No Previous - Cardiac Hx Cardiac Disorders: Yes (chest pain 09/2017) Other/Comment: Hole in the heart, hernia when he was born, hole in heart closed on it's own. - Pulmonary Hx Respiratory Disorders: No - Neurological Hx Neurological Disorder: No - HEENT Hx HEENT Disorder: No - Renal Hx Renal Disorder: No - Endocrine/Metabolic Hx Endocrine Disorders: No - Hematological/Oncological Hx Blood Disorders: No - Integumentary Hx Dermatological Disorder: No - Musculoskeletal/Rheumatological Hx Falls: No - Gastrointestinal Hx Gastrointestinal Disorders: Yes (twisted intestine as a youth) Hx Gastroesophageal Reflux: Yes Other/Comment: obese, hospitilized for sbo at [facility] [place] 08/2015 and 06/2016 - Genitourinary/Gynecological Hx Genitourinary Disorders: No Other/Comment: pt was premature baby - Psychiatric Hx Psychophysiologic Disorder: No Hx Anxiety: No Hx Bipolar Disorder: No Hx Depression: No Hx Emotional Abuse: No Hx Hallucinations: No Hx Panic Disorder: No Hx Post Traumatic Stress Disorder: No Hx Psychosis: No Hx Physical Abuse: No Hx Schizophrenia: No Hx Sexual Abuse: No Hx Substance Use: No - Surgical History Other/Comment: twisted intestine in youth has had multiple surgeries the last one was age 13 at [facility], had sx as infant for inguinal hernia repair, subtotal colectomy - Anesthesia Hx Anesthesia: Yes Hx Anesthesia Reactions: No Hx Malignant Hyperthermia: No Family/Social History Family/Social History: Unknown Family HX Smoking Status: Never Smoked Hx Alcohol Use: Yes (social) Hx Substance Use: No Hx Substance Use Treatment: Yes Allergies/Home Meds Allergies/Adverse Reactions: Allergies shellfish derived Allergy (Verified 08/24/15 20:31) SHORTNESS OF BREATH Physical Exam Vital Signs Temp Pulse Resp BP Pulse Ox 10/16/18 17:27 98 F 76 18 124/64 96 10/16/18 17:08 98.3 F 74 19 124/64 98 Medical Decision Making - Lab Interpretations Lab Results: PT 14.2 SECONDS (9.4-12.5) H 10/16/18 17:00 INR 1.28 10/16/18 17:00 APTT 38.4 Seconds (26.9-38.3) H 10/16/18 17:00 Troponin I < 0.01 ng/mL 10/16/18 17:00 NT-Pro-B Natriuret Pep < 11.1 pg/mL (0-450) 10/16/18 17:00 Total Bilirubin 0.5 mg/dL (0.2-1.3) 10/16/18 17:00 AST 28 U/L (17-59) 10/16/18 17:00 ALT 17 U/L (7-56) 10/16/18 17:00 Alkaline Phosphatase 51 U/L (38-126) 10/16/18 17:00 Total Protein 8.5 g/dL (5.8-8.3) H 10/16/18 17:00 Albumin 4.6 g/dL (3.0-4.8) 10/16/18 17:00 Globulin 3.9 gm/dL 10/16/18 17:00 Albumin/Globulin Ratio 1.2 (1.1-1.8) 10/16/18 17:00 Lipase 45 U/L (23-300) 10/16/18 17:00 - RAD Interpretation Radiology Orders: 10/16/18 17:21 CHEST PORTABLE [RAD] Stat 10/16/18 17:51 ABD & PELVIS PO CONTRAST ONLY [CT] Stat - Medication Orders Current Medication Orders: Discontinued Medications Famotidine (Pepcid) 20 mg IVP STAT STA Stop: 10/16/18 18:45 Last Admin: 10/16/18 19:01 Dose: 20 mg IVP Administration Document 10/16/18 19:01 [facility] (Rec: 10/16/18 19:01 [id number] Charges for Administration # of IVP Administrations 1 Sodium Chloride (Sodium Chloride 0.9%) 1,000 mls @ 999 mls/hr IV .Q1H1M STA Stop: 10/16/18 19:44 Last Admin: 10/16/18 19:02 Dose: 999 mls/hr eMAR Start Stop Document 10/16/18 19:02 [facility] (Rec: 10/16/18 19:02 [id number] Intravenous Solution Start Date 04/14/19 Start Time 19:02 Ketorolac Tromethamine (Toradol) 30 mg IVP STAT STA Stop: 10/16/18 18:44 Last Admin: 10/16/18 19:01 Dose: 30 mg MAR Pain Assessment Document 10/16/18 19:01 [facility] (Rec: 10/16/18 19:01 [id number]) Pain Reassessment Is this a pain reassessment? Yes Sleep Is patient sleeping during reassessment? No Presence of Pain Presence of Pain Yes Pain Scale Used Protocol: PSCALES Pain Scale Used Numeric Location Pain Location Body Site Abdomen Description Description Pressure Intensity of Pain at present 6 Pain Behavior Facial Grimacing Alleviating Factors/Management Relaxation Techniques Techniques Alleviating Factors Medication IVP Administration Document 10/16/18 19:01 [facility] (Rec: 10/16/18 19:01 [id number]) Charges for Administration # of IVP Administrations 1 Metoclopramide HCl (Reglan) 10 mg IVP STAT STA Stop: 10/16/18 18:45 Last Admin: 10/16/18 19:01 Dose: 10 mg IVP Administration Document 10/16/18 19:01 [facility] (Rec: 10/16/18 19:01 [id number] Charges for Administration # of IVP Administrations 1 Disposition/Present on Arrival - Present on Arrival History of DVT/PE: No History of Uncontrolled Diabetes: No Urinary Catheter: No History of Decub. Ulcer: No History Surgical Site Infection Following: None - Disposition Forms: [employer] (Upper Sorbian)
--- NOTE | 2018-10-16 21:14 | ED PDOC ---
Physical Exam Vital Signs Temp Pulse Resp BP Pulse Ox 10/16/18 17:27 98 F 76 18 124/64 96 10/16/18 17:08 98.3 F 74 19 124/64 98 Medical Decision Making ED Course and Treatment: 10/16/18 19:00 Case endorsed to me by Dr. Smith, pending CT, re-evaluation, and disposition. 10/16/18 20:43 CT Abdomen and Pelvis: LUNG BASES: The lung bases appear clear. No pleural effusions are seen. LIVER: Unremarkable. GALLBLADDER AND BILE DUCTS: The gallbladder appears within normal limits. No radioopaque gallstones are seen. No biliary ductal dilatation is evident. PANCREAS: Unremarkable. SPLEEN: Unremarkable. ADRENAL GLANDS: Unremarkable. KIDNEYS, URETERS, AND BLADDER: The kidneys appear within normal limits. There is no hydronephrosis or hydroureter. No urinary calculi are seen. STOMACH AND BOWEL: there is diffuse distention and dilatation of small bowel loops, without discrete transition zone identified. Findings may be on the basis of diffuse small bowel ileus although small bowel obstruction cannot be fully excluded. No evidence suggesting enteritis or colitis. APPENDIX: No evidence of acute appendicitis on CT examination. PERITONEUM: No free fluid. No free air. LYMPH NODES: No lymphadenopathy is evident. REPRODUCTIVE: Unremarkable as visualized. VASCULATURE: No evidence of abdominal aortic aneurysm. BONES: No aggressive appearing osseous lesion. No acute osseous pathology evident. IMPRESSION: Diffuse dilatation of small bowel loops may be on the basis of diffuse small bowel ileus versus small bowel obstruction, however, no discrete transition zone is identified Electronically signed on Oct 16, 2018 8:37:54 PM EDT by: Sharron De Anda M.D., Certified by [facility], Diagnostic Radiology 10/16/18 21:00 Case discussed with residential field manager refrigeration engineering teacher, who is aware and agrees to evaluate pt. case d/w dr dodd accepts case 10/17/18 06:22 - Lab Interpretations Lab Results: PT 14.2 SECONDS (9.4-12.5) H 10/16/18 17:00 INR 1.28 10/16/18 17:00 APTT 38.4 Seconds (26.9-38.3) H 10/16/18 17:00 Troponin I < 0.01 ng/mL 10/16/18 17:00 NT-Pro-B Natriuret Pep < 11.1 pg/mL (0-450) 10/16/18 17:00 Total Bilirubin 0.5 mg/dL (0.2-1.3) 10/16/18 17:00 AST 28 U/L (17-59) 10/16/18 17:00 ALT 17 U/L (7-56) 10/16/18 17:00 Alkaline Phosphatase 51 U/L (38-126) 10/16/18 17:00 Total Protein 8.5 g/dL (5.8-8.3) H 10/16/18 17:00 Albumin 4.6 g/dL (3.0-4.8) 10/16/18 17:00 Globulin 3.9 gm/dL 10/16/18 17:00 Albumin/Globulin Ratio 1.2 (1.1-1.8) 10/16/18 17:00 Lipase 45 U/L (23-300) 10/16/18 17:00 - RAD Interpretation Radiology Orders: 10/16/18 17:21 CHEST PORTABLE [RAD] Stat 10/16/18 17:51 ABD & PELVIS PO CONTRAST ONLY [CT] Stat - Medication Orders Current Medication Orders: Discontinued Medications Famotidine (Pepcid) 20 mg IVP STAT STA Stop: 10/16/18 18:45 Last Admin: 10/16/18 19:01 Dose: 20 mg IVP Administration Document 10/16/18 19:01 [facility] (Rec: 10/16/18 19:01 [id number]) Charges for Administration # of IVP Administrations 1 Sodium Chloride (Sodium Chloride 0.9%) 1,000 mls @ 999 mls/hr IV .Q1H1M STA Stop: 10/16/18 19:44 Last Admin: 10/16/18 19:02 Dose: 999 mls/hr eMAR Start Stop Document 10/16/18 19:02 [facility] (Rec[facility]16[facility]18 [facility]02 [id number] Intravenous Solution Start Date 10/16/18 Start Time 19:02 Ketorolac Tromethamine (Toradol) 30 mg IVP STAT STA Stop: 10/16/18 18:44 Last Admin: 10/16/18 19:01 Dose: 30 mg MAR Pain Assessment Document 10/16/18 19:01 [facility] (Rec: 10/16/18 19:01 [id number]) Pain Reassessment Is this a pain reassessment? Yes Sleep Is patient sleeping during reassessment? No Presence of Pain Presence of Pain Yes Pain Scale Used Protocol: PSCALES Pain Scale Used Numeric Location Pain Location Body Site Abdomen Description Description Pressure Intensity of Pain at present 6 Pain Behavior Facial Grimacing Alleviating Factors/Management Relaxation Techniques Techniques Alleviating Factors Medication IVP Administration Document 10/16/18 19:01 [facility] (Rec: 10/16/18 19:01 [place] [id number]-) Charges for Administration # of IVP Administrations 1 Metoclopramide HCl (Reglan) 10 mg IVP STAT STA Stop: 10/16/18 18:45 Last Admin: 10/16/18 19:01 Dose: 10 mg IVP Administration Document 10/16/18 19:01 [facility] (Rec: 10/16/18 19:01 [place] [id number]-) Charges for Administration # of IVP Administrations 1 Disposition/Present on Arrival - Present on Arrival Any Indicators Present on Arrival: No History of DVT/PE: No History of Uncontrolled Diabetes: No Urinary Catheter: No History of Decub. Ulcer: No History Surgical Site Infection Following: None - Disposition Have Diagnosis and Disposition been Completed?: Yes Diagnosis: Small bowel obstruction Disposition: HOSPITALIZED Disposition Time: 21:00 Condition: GOOD
--- NOTE | 2018-10-16 22:02 | CP.PCM.CON ---
History of Present Illness - History of Present Illness History of Present Illness: GENERAL SURGERY CONSULT NOTE FOR DR. 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 Patient states that the pain began on after eating chicken noodle soup. He was not able to go to the bathroom and patient suspected it was another SBO. His last BM was on and last flatus was Wednesday morning. He stated that he was "too scared to eat" due to fear of the severe abdominal pain he experienced with his previous SBOs. He states that since , he has only eaten a few bites and had a few sips of water. He attempted to induce vomiting but was unsuccessful. 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 Of note, patient has been admitted at [facility] twice in 2015 and once in July of this year for SBOs which were managed conservatively with NG tube and bowel rest. 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 - PULMONARY Hx Respiratory Disorders: No - NEUROLOGICAL Hx Neurological Disorder: No - HEENT Hx HEENT Problems: No - RENAL Hx Chronic Kidney Disease: No - ENDOCRINE/METABOLIC Hx Endocrine Disorders: No - HEMATOLOGICAL/ONCOLOGICAL Hx Blood Disorders: No - INTEGUMENTARY Hx Dermatological Problems: No - MUSCULOSKELETAL/RHEUMATOLOGICAL Hx Falls: No - GASTROINTESTINAL Hx Gastrointestinal Disorders: Yes (twisted intestine as a youth) Hx Gastroesophageal Reflux: Yes Other/Comment: obese, hospitilized for sbo at [facility] [place] 08/2015 and 06/2016 - GENITOURINARY/GYNECOLOGICAL Hx Genitourinary Disorders: No Other/Comment: pt was premature baby - PSYCHIATRIC Hx Psychophysiologic Disorder: No Hx Anxiety: No Hx Bipolar Disorder: No Hx Depression: No Hx Emotional Abuse: No Hx Hallucinations: No Hx Panic Symptoms: No Hx Post Traumatic Stress Disorder: No Hx Psychosis: No Hx Physical Abuse: No Hx Schizophrenia: No Hx Sexual Abuse: No Hx Substance Use: No - SURGICAL HISTORY Other/Comment: twisted intestine in youth has had multiple surgeries the last one was age 13 at [facility], had sx as for inguinal hernia repair, subtotal colectomy - ANESTHESIA Hx Anesthesia: Yes Hx Anesthesia Reactions: No Hx Malignant Hyperthermia: No Meds Allergies/Adverse Reactions: Allergies Allergy/AdvReac Type Severity Reaction Status Date / Time shellfish derived Allergy SHORTNESS Verified 08/24/15 20:31 OF BREATH - Medications Medications: Current Medications Sodium Chloride (Sodium Chloride 0.45%) 1,000 mls @ 80 mls/hr IV .[id number] [facility] Pantoprazole Sodium (Protonix 40mg Ivpb) 40 mg in 100 mls @ 200 mls/hr IVPB 0600 [facility] Ketorolac Tromethamine (Toradol) 30 mg IVP Q6H PRN PRN Reason: Pain, moderate (4-7) Metoclopramide HCl (Reglan) 10 mg IVP ACHS [facility] Physical Exam - Constitutional Appears: Non-toxic, No Acute Distress - Head Exam Head Exam: ATRAUMATIC, NORMAL INSPECTION - Eye Exam Eye Exam: EOMI, Normal appearance - Respiratory Exam Respiratory Exam: NORMAL BREATHING PATTERN. absent: Respiratory Distress - Cardiovascular Exam Cardiovascular Exam: +S1, +S2 - GI/Abdominal Exam GI & Abdominal Exam: Soft, Tenderness (diffuse, worse in epigastric). absent: Distended, Firm, Rebound, Rigid Additional comments: Horizontal incision across abdomen, well healed Other smaller incisions superior and inferior to that - Neurological Exam Neurological exam: Alert, CN II-XII Intact, Oriented x3 - Psychiatric Exam Psychiatric exam: Normal Affect, Normal Mood - Skin Skin Exam: Dry, Normal Color, Warm Results - Vital Signs Recent Vital Signs: Last Vital Signs Temp 98 F 10/16/18 17:27 Pulse 76 10/16/18 17:27 Resp 18 10/16/18 17:27 BP 124/64 10/16/18 17:27 Pulse Ox 96 10/16/18 17:27 - Labs Result Diagrams: 10/16/18 17:00 10/16/18 17:00 Labs: Laboratory Results - last 24 hr 10/16/18 10/16/18 10/16/18 17:00 17:00 17:00 WBC 10.6 RBC 4.68 Hgb 14.1 Hct 43.0 MCV 91.9 MCH 30.1 MCHC 32.8 RDW 12.1 Plt Count 327 MPV 10.0 PT 14.2 H INR 1.28 APTT 38.4 H Sodium 140 Potassium 4.0 Chloride 101 Carbon Dioxide 29 Anion Gap 14 BUN 12 Creatinine 0.9 Est GFR ( Amer) > 60 Est GFR (Non-Af Amer) > 60 Random Glucose 81 Calcium 9.7 Total Bilirubin 0.5 AST 28 ALT 17 Alkaline Phosphatase 51 Troponin I < 0.01 NT-Pro-B Natriuret Pep < 11.1 Total Protein 8.5 H Albumin 4.6 Globulin 3.9 Albumin/Globulin Ratio 1.2 Lipase 45 Assessment & Plan - Assessment and Plan (Free Text) Assessment: 43yo M with 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 Luis Manuel Oh PGY-4
[2018-10-16] MEDS: Sodium Chloride 0.45% 1,000 ML IV SCH (22:16)
--- NOTE | 2018-10-17 02:06 | HP ---
DATE OF EXAM: 10/16/2018 HISTORY OF PRESENT ILLNESS: I was called to the emergency room to see Casper. He is having severe abdominal pain. He has been dealing with this for about 2 to 3 days now, he stopped eating, just drinking fluids. He has had this numerous times in the past, he has had small bowel obstructions and ileus in the past. He was doing warm compresses and packs to his abdomen, tried to throw up. He has had 3 episodes of small bowel obstruction. He has had NG tubes in the past, but at this time, he is refusing the NG tube. We will see how the rest of the medical progresses. This is a 43-year-old man with abdominal adhesions, small bowel obstructions. He might be at a point where he might need to have a lap with adhesions to be taken care of. PAST MEDICAL HISTORY: No medical history to speak of except for in 09/2017. He had a hole in the heart and hernia when he was born. He had a hole in the heart that closed by itself, but he had a procedure when he was born for the bowels, and they think that is where the adhesions came from. He has had twisted intestines as a youth. He has had reflux. He is a little bit overweight. Numerous small bowel obstructions. PAST SURGICAL HISTORY: He had multiple surgeries, the last one was at age 13. He had an inguinal hernia repair, a subtotal colectomy earlier in his life. FAMILY HISTORY: Unknown. SOCIAL HISTORY: No smoking. He will drink socially. No substance abuse. ALLERGIES: TO SHELLFISH, GETS SHORT OF BREATH. REVIEW OF SYSTEMS: No acute vision or hearing changes. No sore throat. No chest pain, palpitations, shortness of breath, or cough. He is having nauseousness with vomiting. He is having no bowel movements. Abdominal pain, constipation, nausea, anorexia. No skin issues that he knows of. He is not anxious. His healing is much improved. PHYSICAL EXAMINATION: VITAL SIGNS: He has 98.6 temperature, 74 pulse, 19 respiratory rate, 124/64 blood pressure, and 98% O2 sat. GENERAL: He is well-appearing, though uncomfortable on the gurney. Alert and oriented x3. HEENT: Head is atraumatic and normocephalic. Extraocular muscles are intact. Pupils equally reactive to light and accommodation. Throat is dry. NECK: Supple. No palpable lymphadenopathy cervically. Thyroid midline. Good range of motion. HEART: Regular rate. Normal S1 and S2. LUNGS: Decreased breath sounds, but clear to auscultation bilaterally. ABDOMEN: It is definitely tender and distended. Some guarding. No rebound. No bowel sounds I could feel. Tender to gentle palpation. EXTREMITIES: No edema. SKIN: No apparent rashes or ulcers. Warm. NEUROLOGICAL: Alert and oriented x3. LABORATORY DATA: He had multiple tests done. He has 10.6 white count, 14.1 hemoglobin, 43 hematocrit, 327 platelets. INR is 1.28. He has a 140 sodium, potassium 4, BUN 12, creatinine 0.9, GFR is greater than 60, sugar is 81, calcium is 9.7, total bili is 0.5, AST is 20, ALT of 17, alk phos 51. Troponin I is less than 0.01. BNP is less than 11.1. Total protein 0.5, albumin is 4.6, globulin is 3.9, lipase is 45. CAT scan of the abdomen and pelvis showed a small bowel obstruction I am told. Currently he has had a chest x-ray, it was okay, no readings are back yet. ASSESSMENT AND PLAN: He has been put to the hospital floor for a small bowel obstruction. He will be here for IV fluids, IV Protonix, some , Toradol for pain, surgical consult, n.p.o., Hopefully he will do well. He will get IV hydration and n.p.o. evaluation on the patient. Kvng Eugene DO MTDD
[2018-10-17] MEDS ORDERED: Pantoprazole 40mg/100mL NS 40 MG/100 ML BAG IVPB SCH (06:00)
[2018-10-17 07:21] LABS: HEMOGLOBIN 13.1 g/dL (14.0-18.0); MEAN CELL VOLUME 92.3 fl (80.0-105.0); MEAN CORPUSCULAR HEMOGLOBIN 29.8 pg (25.0-35.0); MEAN CORPUSCULAR HGB CONC 32.3 g/dl (31.0-37.0); MEAN PLATELET VOLUME 9.8 fl (7.0-11.0); RBC 4.39 10^6/uL (3.5-6.1)
[2018-10-17 07:43] LABS: ALB/GLOB RATIO 1.1 (1.1-1.8); ALBUMIN 3.9 g/dL (3.0-4.8); ALT/SGPT 10 U/L (7-56); AST/SGOT 21 U/L (17-59); BLOOD UREA NITROGEN 11 mg/dL (7-21); CALCIUM 8.9 mg/dL (8.4-10.5); GFR NON-AFRICAN AMERICAN > 60
--- NOTE | 2018-10-17 08:31 | CP.PCM.PN ---
Subjective - Date & Time of Evaluation Date of Evaluation: 10/17/18 Time of Evaluation: 07:45 - Subjective Subjective: General Surgery Progress Note for Dr. Luis Manuel Slater, PGY1 Patient seen and examined at bedside this morning. No acute events noted overnight. Denies CP/SOB/fevers/nausea/vomiting. He denies any BM and flatus overnight and this morning. Objective - Vital Signs/Intake and Output Vital Signs (last 24 hours): Temp Pulse Resp BP Pulse Ox 97.9 F 60 20 131/75 96 10/17/18 06:00 10/17/18 06:00 10/17/18 06:00 10/17/18 06:00 10/17/18 06:00 - Medications Medications: Current Medications Sodium Chloride (Sodium Chloride 0.45%) 1,000 mls @ 80 mls/hr IV .[id number] [facility] Last Admin: 10/16/18 22:16 Dose: 80 mls/hr Pantoprazole Sodium (Protonix 40mg Ivpb) 40 mg in 100 mls @ 200 mls/hr IVPB 0600 [facility] Last Admin: 10/17/18 05:20 Dose: 200 mls/hr Ketorolac Tromethamine (Toradol) 30 mg IVP Q6H PRN PRN Reason: Pain, moderate (4-7) Metoclopramide HCl (Reglan) 10 mg IVP ACHS [facility] Last Admin: 10/16/18 22:08 Dose: Not Given Physical Exam - Constitutional Appears: Non-toxic, No Acute Distress - Head Exam Head Exam: ATRAUMATIC, NORMAL INSPECTION - Eye Exam Eye Exam: EOMI, Normal appearance - Respiratory Exam Respiratory Exam: NORMAL BREATHING PATTERN. absent: Respiratory Distress, accessory muscle use - Cardiovascular Exam Cardiovascular Exam: +S1, +S2, no tachycardia - GI/Abdominal Exam GI & Abdominal Exam: Soft, generalized tenderness appreciated. absent: Distended, Firm, Rigid Additional comments: RLQ scar noted, LLQ scar noted Horizontal scar noted along mid-abdomen - Neurological Exam Neurological exam: Alert, CN II-XII Intact, Oriented x3 - Skin Skin Exam: Dry, Normal Color, Warm - Labs Labs: 10/17/18 07:00 10/17/18 07:00 PT 14.2 SECONDS (9.4-12.5) H 10/16/18 17:00 INR 1.28 10/16/18 17:00 APTT 38.4 Seconds (26.9-38.3) H 10/16/18 17:00 Assessment and Plan - Assessment and Plan (Free Text) Assessment: 43 year old male with PMH significant for recurrent small bowel obstruction, unknown intestinal surgery as a child presenting to the hospital for abdominal pain and found to have SBO vs ileus. SBO vs ileus Plan: -CTAP reviewed, [facility] Rad: Diffuse dilatation of small bowel loops may be on the basis of diffuse small bowel ileus versus small bowel obstruction, however, no discrete transition zone is identified -NPO -IV fluids, NS @ 80cc/hr -reglan blanca, protonix IV, toradol prn -NG tube if patient vomits -Further recommendations per Dr. Issa
--- NOTE | 2018-10-17 08:54 | CT ---
Date of service: 10/16/2018 PROCEDURE: CT Abdomen and Pelvis without intravenous contrast HISTORY: h/o adhesions and SBO COMPARISON: None. TECHNIQUE: Technique. Contrast dose: Radiation dose: Total exam DLP = 1585.48 mGy-cm. This CT exam was performed using one or more of the following dose reduction techniques: Automated exposure control, adjustment of the mA and/or kV according to patient size, and/or use of iterative reconstruction technique. FINDINGS: LOWER THORAX: Unremarkable. LIVER: Unremarkable. No gross lesion or ductal dilatation. GALLBLADDER AND BILE DUCTS: Unremarkable. PANCREAS: Unremarkable. No gross lesion or ductal dilatation. SPLEEN: Unremarkable. ADRENALS: Unremarkable. No mass. KIDNEYS AND URETERS: 3.9 centimeter left upper pole renal cyst. No hydronephrosis. No solid mass. VASCULATURE: Unremarkable. No aortic aneurysm. No aortic atherosclerotic calcification or mural plaque present. BOWEL: Old left lower quadrant ostomy. Multiple mildly dilated small bowel loops suggestive ileus though early small bowel obstruction is not definitively excluded APPENDIX: Unremarkable. Normal appendix. PERITONEUM: Unremarkable. No free fluid. No free air. LYMPH NODES: Unremarkable. No enlarged lymph nodes. BLADDER: Unremarkable. REPRODUCTIVE: Unremarkable. BONES: No acute fracture. OTHER FINDINGS: None. IMPRESSION: Old left lower quadrant ostomy defect. Multiple mildly dilated small bowel loops suggestive ileus though early small bowel obstruction is not definitively excluded 3.9 centimeter left upper pole renal cyst.
--- NOTE | 2018-10-17 09:19 | RAD ---
Date of service: 10/16/2018 HISTORY: abd/chest pain COMPARISON: 07/07/2018 TECHNIQUE: 1 view obtained. FINDINGS: LUNGS: No active pulmonary disease. PLEURA: No significant pleural effusion identified, no pneumothorax apparent. CARDIOVASCULAR: No aortic atherosclerotic calcification present. Mild cardiomegaly mild vascular congestion OSSEOUS STRUCTURES: Scoliosis convex to the right. VISUALIZED UPPER ABDOMEN: Normal. OTHER FINDINGS: None. IMPRESSION: No active disease.
--- NOTE | 2018-10-17 10:43 | PN ---
DATE: 10/17/2018 SUBJECTIVE: I saw him this morning in bed. He is still quite uncomfortable on his abdomen. He is on IV fluids and he is n.p.o. Although he is distended, he is concerned about it. He is currently on IV fluids, Pepcid IV, pantoprazole IV, Reglan IV, Toradol IV. He has lot of discomfort in his abdomen. PHYSICAL EXAMINATION: VITAL SIGNS: He has 97.9 temperature, 60 pulse, 131/75 blood pressure, 20 respiratory rate, 96% O2 sat on room air. HEAD: Atraumatic, normocephalic. HEART: Regular rate. LUNGS: Decreased breath sounds, but clear. ABDOMEN: Soft, obese. He is tender diffusely on the left side, also no bowel sounds. Questionable guarding. No rebound. EXTREMITIES: No edema. DIAGNOSTIC DATA: CAT scan shows ileus versus small-bowel obstruction. LABORATORY DATA: He has a 9 white count, 13.1 hemoglobin, 40.5 hematocrit with 302 platelets. INR is 1.28. He has 137 sodium, potassium 3.8, BUN 11, creatinine 0.9, GFR is greater than 60, sugar is 88, calcium is 8.9, total bilirubin is 0.7, AST 21, ALT 10, alkaline phosphatase 43. Troponin I is less than 0.01. Total protein 7.4, albumin is 3.9. Lipase is 45. ASSESSMENT AND PLAN: Hopefully, he will improve with IV fluids and oral. We will see what Gastroenterology and Surgery have to say Kvng Eugene DO MTDDelaney
[2018-10-17] MEDS: Sodium Chloride 0.45% 1,000 ML IV SCH (12:43)
--- NOTE | 2018-10-17 17:42 | CARD ---
APPROVED REPORT Date of service: 10/16/2018 EKG Measurement Heart [id number] <Conclusion> Poor data quality, interpretation may be adversely affected Normal sinus rhythm Left axis deviation Abnormal ECG
[2018-10-18 07:11] LABS: HEMOGLOBIN 13.2 g/dL (14.0-18.0); MEAN CELL VOLUME 90.9 fl (80.0-105.0); MEAN PLATELET VOLUME 9.9 fl (7.0-11.0); RBC 4.4 10^6/uL (3.5-6.1); RED CELL DISTRIBUTION WIDTH 11.7 % (11.5-14.5); WHITE BLOOD COUNT 8.8 10^3/uL (4.5-11.0)
[2018-10-18 07:35] LABS: ALB/GLOB RATIO 1.1 (1.1-1.8); ALBUMIN 3.9 g/dL (3.0-4.8); ALT/SGPT 20 U/L (7-56); AST/SGOT 24 U/L (17-59); BLOOD UREA NITROGEN 7 mg/dL (7-21); CALCIUM 8.9 mg/dL (8.4-10.5); GFR NON-AFRICAN AMERICAN > 60
[2018-10-18 08:02] VITALS: O2SAT 95
[2018-10-18 15:59] VITALS: BP 110/54; PULSE 78; RESP 20; TEMP 97.6
--- NOTE | 2018-10-18 17:55 | CP.PCM.PN ---
Subjective - Date & Time of Evaluation Date of Evaluation: 10/18/18 Time of Evaluation: 07:50 - Subjective Subjective: General surgery progress note for Dr. Shelly Syed, PGY-2 Pt seen/examined at bedside with surgical team Pt reports that he is having flatus, liquid stools. Abdominal pain has resolved. Tolerating liquids. Asking for more food. Hungry. Denies N & V. Objective - Vital Signs/Intake and Output Vital Signs (last 24 hours): Temp Pulse Resp BP Pulse Ox 97.6 F 78 20 110/54 L 95 10/18/18 15:59 10/18/18 15:59 10/18/18 15:59 10/18/18 15:59 10/18/18 15:59 Intake and Output: 10/18/18 10/18/18 06:59 18:59 Intake Total 840 480 Balance 840 480 - Medications Medications: Current Medications Ketorolac Tromethamine (Toradol) 30 mg IVP Q6H PRN PRN Reason: Pain, moderate (4-7) Last Admin: 10/17/18 08:32 Dose: 30 mg Metoclopramide HCl (Reglan) 10 mg IVP ACHS [facility] Last Admin: 10/18/18 17:04 Dose: Not Given Pantoprazole Sodium (Protonix Inj) 40 mg IVP 0600 [facility] Last Admin: 10/18/18 05:31 Dose: 40 mg - Labs Labs: 10/18/18 06:45 10/18/18 06:45 PT 14.2 SECONDS (9.4-12.5) H 10/16/18 17:00 INR 1.28 10/16/18 17:00 APTT 38.4 Seconds (26.9-38.3) H 10/16/18 17:00 - Constitutional Appears: Non-toxic, No Acute Distress - Head Exam Head Exam: ATRAUMATIC, NORMAL INSPECTION, NORMOCEPHALIC - Eye Exam Eye Exam: EOMI, Normal appearance - ENT Exam ENT Exam: Mucous Membranes Moist, Normal Exam - Neck Exam Neck Exam: Full ROM - Respiratory Exam Respiratory Exam: NORMAL BREATHING PATTERN - Cardiovascular Exam Cardiovascular Exam: REGULAR RHYTHM, +S1, +S2 - GI/Abdominal Exam GI & Abdominal Exam: Soft. absent: Distended, Firm, Guarding, Rigid, Tenderness Additional comments: multiple well healed abdominal scars - Extremities Exam Extremities Exam: Normal Inspection - Neurological Exam Neurological Exam: Alert, Awake, CN II-XII Intact, Oriented x3 - Psychiatric Exam Psychiatric exam: Normal Affect, Normal Mood - Skin Skin Exam: Dry, Intact, Normal Color, Warm Assessment and Plan - Assessment and Plan (Free Text) Assessment: 43M w/SBO -resolved Plan: Ok to advance diet Pain control as needed Continue to monitor bowel function No surgical intervention at this time OOBTC Ambulate Will CHATO Syed, PGY-2
--- NOTE | 2018-10-19 00:01 | DS ---
HISTORY OF PRESENT ILLNESS: He came in with an ileus small bowel obstruction. He actually did much better than in the past 24 to 48 hours. He is now walking in the room. He took some clear liquids. He has an increased diet for lunch. If he does well for lunch today my plan is to discharge him this afternoon. PHYSICAL EXAMINATION: VITAL SIGNS: He has a 98.3 temperature, 63 pulse, 112/65 blood pressure, 16 respiratory rate and 95% O2 sat on room air. HEENT: Head is atraumatic and normocephalic. HEART: Regular rate. LUNGS: Clear to auscultation. ABDOMEN: Much softer, nontender. Positive bowel sounds, which is completely different from yesterday. He is also feeling better. He said he moved his bowels and he ate liquids so we are going to increase it to regular for lunch. MEDICATIONS: He is currently on Protonix, Reglan and Toradol. LABORATORY DATA: He has an 8.8 white count, 30.2 hemoglobin, 40 hematocrit with 298 platelets. He has a sodium 139, potassium 3.6, BUN 7, creatinine 0.7, GFR is greater than 60, sugar is 88, calcium is 8.9, total bili is 0.5, AST is 24, ALT is 20, alk phos 42, troponin I is less than 0.01, BNP is 11.1 and total protein 7.4. PLAN: I am hoping he does well for lunch so I could discharge him this afternoon. ASSESSMENT: He was here for ileus small bowel obstruction picture. Kvng Eugene DO
== END 2018-10-18 20:21 | disposition home or self-care (01) | DRG 390 ==
LOC: ED 16:46 → ERH 21:01 → 5RSO 22:37
PROVIDERS: ADMIT Family Medicine; ATTEND Family Medicine
DX: K56.50 Intestinal adhesions [bands], unspecified as to partial versus complete obstruction (principal); K21.9 Gastro-esophageal reflux disease without esophagitis